=== PATIENT | female | born 1975 | race Caucasian/White ===

== ENCOUNTER 2020-08-08 10:24 | Outpatient (CLI) | payer OTHER, SELFPAY ==
--- NOTE | ~2020-08-08 | MM_ITS ---
EXAMINATION: MM screening [facility] BI w shawn HISTORY: Screening mammogram TECHNIQUE: Craniocaudal and mediolateral oblique 3-D tomosynthesis images were obtained and synthetic 2-D images were generated. CAD analysis was submitted and interpreted. COMPARISON: 08/20/2018, 11/01/2016 bilateral digital screening mammogram examinations BREAST PARENCHYMAL COMPOSITION: There are scattered areas of fibroglandular density. FINDINGS: Stable fibroglandular asymmetry, with more prominent stroma on the right. There is no evide nce of suspicious mass, calcification, or architectural distortion to suggest malignancy in either br east. There has been no suspicious interval change. IMPRESSION: 1. No mammographic evidence of malignancy. 2. Recommend routine screening mammography in one year. BI-RADS Category 2: Benign finding(s). Reviewed, dictated and finalized at location A. [employer] ADMINISTRATOR
== END 2020-08-08 10:25 | disposition home or self-care (01) ==
LOC: ANHIMG 10:28
PROVIDERS: PCP Family Medicine; Visit Provider Nurse Practitioner
DX: Z12.31 Encounter for screening mammogram for malignant neoplasm of breast (principal)
CPT/HCPCS: 77063; 77067

== ENCOUNTER 2020-12-28 17:04 | Emergency (ER) | payer OTHER, SELFPAY ==
[2020-12-28 17:25] VITALS: BP 155/92; PULSE 95; RESP 16; TEMP 36.3; O2SAT 100
[2020-12-28 17:33] VITALS: BP 152/79; PULSE 95
[2020-12-28 17:34] VITALS: BP 145/82; PULSE 100
[2020-12-28 17:36] VITALS: BP 140/93; PULSE 104
[2020-12-28 17:43] LABS: Basophils Absolute Auto 0.1 K/mm3 (0.0-0.1); Basophils Percent Auto 0.6 % (0.2-1.2); Eosinophils Absolute Auto 0.1 K/mm3 (0-0.3); Eosinophils Percent Auto 1.1 % (0-4.4); Hematocrit 40.5 % (37.0-47.0); Hemoglobin 13.6 g/dL (12.0-15.0); Immature Granulocyte Absolute 0.03 K/mm3 (0.00-0.031); Immature Granulocyte Percent A 0.3 % (0-0.5); Lymphocytes Absolute Auto 3.72 K/mm3 (0.9-3.2); Mean Corpuscular HGB Conc 33.6 g/dl (32-36); Mean Corpuscular Hemoglobin 31.1 pg (26-34); Mean Corpuscular Volume 92.5 fl (80-100); Mean Platelet Volume 9.8 fl (7.4-10.4); Monocytes Absolute Auto 0.9 K/mm3 (0.1-0.6); Monocytes Percent Auto 8.5 % (2.6-8.5); Neutrophils Absolute Auto 6.1 K/mm3 (1.3-6.7); Neutrophils Percent Auto 55.5 % (45.5-73.1); Platelet Count Result 320 k/mm3 (150-375); Red Blood Count 4.38 M/mm3 (4.2-5.4); Red Cell Distribution Width 12.3 % (11.5-14.5); White Blood Count 10.9 K/mm3 (4.5-10.0)
[2020-12-28] MEDS: LACTATED RINGERS 1,000 ML 999 ML IV CONT (18:07)
--- NOTE | 2020-12-28 19:23 | PC.NURSE ---
assumed care of patient
--- NOTE | 2020-12-28 19:36 | ED.FEMALEGU ---
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 Stated complaint: heavy vag bleeding Time Seen by Provider: 12/28/20 17:34 Source: patient Mode of arrival: ambulatory Limitations: no limitations History of Present Illness HPI Narrative: 45-year-old female Here because of heavy menstrual bleeding Patient reports that her periods have become progressively heavier/longer with more and more clots over the last 3 or 4 months She feels like she was little dizzy today because of this decided come to the ER She is on a low-dose oral contraceptive, in the placebo week right now She has taken some Midol and some Motrin for cramps She has not been seen for these complaints as an outpatient yet but did schedule with [employer] [facility] Related Data Allergies Allergy/AdvReac Type Severity Reaction Status Date / Time No Known Allergies Allergy Unverified 01/13/13 16:19 Review of Systems Review of Systems: All systems reviewed & are unremarkable except as noted in HPI and below Constitutional: Constitutional: Reports no additional constitutional complaints, Denies chills, Denies fever(s) and Denies headache(s) Eyes: Eyes: Reports no additional eye complaints and Denies change in vision ENT: Denies headache(s) and Denies sore throat Cardiovascular: Cardiovascular: Denies chest pain and Denies dyspnea Respiratory: Respiratory: Denies cough and Denies dyspnea Gastrointestinal: Gastrointestinal: Denies abdominal pain, Denies diarrhea and Denies vomiting Genitourinary: Genitourinary: Reports abnormal vaginal bleeding, Denies urinary frequency, Denies dysuria and Reports pelvic pain Musculoskeletal: Musculoskeletal: Denies deformity, Denies arthralgias, Denies joint swelling and Denies numbness Integumentary/Breasts: Skin/Breast: Denies rash and Denies wounds Neurologic: Reports dizziness, Denies headache(s), Denies focal weakness and Denies numbness Psychiatric: Psychiatric: Reports no additional psychiatric complaints Endocrine: Endocrine: Reports no additional endocrine complaints Hematologic/Lymphatic: Hematologic/Lymphatic: Reports no additional hematologic/lymphatic complaints Allergic/Immunologic: Allergic/Immunologic: Reports no additional allergic/immunologic complaints PMFSH Social History Social History Gender identity (if verbalized by the patient): Female Exam Const: General: cooperative, healthy appearing, no acute distress and alert Orientation/consciousness: patient oriented x3 (alert) HENMT: Head: normal to inspection, normocephalic and atraumatic Ears: external ears normal General nose exam: no epistaxis Eyes: Conjunctivae: conjunctivae normal EOM: EOMs intact bilaterally Neck: Neck: normal visual inspection, supple and no JVD Resp: Effort & Inspection: normal respiratory effort and not labored Auscultation: other (BS =) Cardio: Rate: regular rate Rhythm: regular rhythm Heart sounds: no murmurs GI: Inspection: non-distended GI Palp: Yes Soft to palpation and No Tenderness to palpation present (GI) : Other: Very little in the way of blood in the vault or from the cervical os No cervical motion tenderness Uterus is retroverted but not clearly enlarged No adnexal masses Skin: General skin exam: normal color and no rashes or lesions noted Neuro: General: patient oriented x3 (alert) and moves all extremities Speech: normal speech Extrem: General: normal to inspection and no pedal edema Psych: Affect: normal affect Course Course Emergency Course: Discussed with Dr. Klein, will recommend that the patient taking 100 mg of Motrin 3 times a day and start her next pack of control pills right now and then she can be seen in the office on Thursday Vital Signs Vital signs: Vital Signs Temperature 36.3 C L 12/28/20 17:25 Pulse Rate 95 12/28/20 17:25 Respiratory Rate 16 12/28/20 17:25 Blood Pressure 155/92 H 12/28/20 17:25 Pulse Oximetry 100 12/28/20 17:25
== END 2020-12-28 19:53 | disposition home or self-care (01) ==
PROVIDERS: Emergency Medicine; Emergency Provider Emergency Medicine; PCP Family Medicine
DX: N92.0 Excessive and frequent menstruation with regular cycle (principal)
CPT/HCPCS: 36415; 81025; 85025; 96360; 99284; J7120

== ENCOUNTER → 2021-01-21 10:57 | Outpatient (CLI) | payer OTHER, SELFPAY ==
--- NOTE | ~2021-01-21 | US_ITS ---
EXAMINATION: US transvaginal DATE: 01/21/2021 11:22 INDICATION: Abnormal uterine bleeding TECHNIQUE: Multiple endovaginal sonographic images of the pelvis were obtained. COMPARISON: None. FINDINGS: The uterus measures 8.3 x 5.6 x 6.3 cm. There is a 2.3 x 2.0 x 2.4 cm submucosal fibroid of the posterior uterus. The endometrial complex measures 7 mm. The right ovary measures 4.4 x 2.5 x 3. 6 cm. The left ovary measures 2.5 x 1.7 x 4.4 cm. There is normal vascular flow in the ovaries. There is no free fluid in the pelvis. IMPRESSION: 1. Submucosal fibroid measuring up to 2.4 cm. Reviewed, dictated and finalized at location B.
== END ==
PROVIDERS: PCP Family Medicine; Visit Provider Nurse Practitioner
DX: N93.8 Other specified abnormal uterine and vaginal bleeding (principal); D25.0 Submucous leiomyoma of uterus
CPT/HCPCS: 76830

== ENCOUNTER 2021-09-16 02:37 | Day surgery (SDC) | payer OTHER, SELFPAY ==
[2021-09-05 14:38] VITALS: BMI 28.3
[2021-09-16 09:15] VITALS: BP 119/68; PULSE 106; RESP 18; TEMP 36.2; O2SAT 97; BMI 28.8
--- NOTE | 2021-09-16 09:21 | P.CONGI_ITS ---
Assessment and Plan Assessment and plan (1) Colon cancer screening: Code(s): Z12.11 - Encounter for screening for malignant neoplasm of colon Status: Acute (2) Positive colorectal cancer screening using Cologuard test: Code(s): R19.5 - Other fecal abnormalities Status: Acute Assessment and Plan: Colonoscopy with possible biopsy or polypectomy or cautery or injection of substances. GI Consult Note Consult date/time: 09/16/21 09:21 HPI: Nathaniel Hernandez is a 46 year old female Referred for colon cancer screening. She perform Cologuard test recently which was positive. She has not had blood in her stools. She did have loose stools for year to but recently went on a medication and seems to have changed at. She is almost constipated lately. There is no family history of inflammatory bowel disease Review of Systems Review of Systems: All systems reviewed & are unremarkable except as noted in HPI and below [facility] Social History Social History Smoking packs per day: 1 Smoking cigarettes per day: 20.0 Years smoked: 30 Smoking pack-years: 30.00 Smoking status: Current every day smoker Tobacco type: cigarettes Alcohol intake: never Substance use: never Living arrangements: with family Gender identity (if verbalized by the patient): Female Spiritual care concerns: No Meds Home Medications and Allergies Home Medications Medication Instructions Recorded Confirmed Type dextroamphetamine-amphetamine 20 mg PO DAILY 09/05/21 09/16/21 History [Adderall XR] medroxyprogesterone 150 mg IM DIRECTED 09/05/21 09/16/21 History rosuvastatin 10 mg PO DAILY 09/05/21 09/16/21 History Allergies Allergy/AdvReac Type Severity Reaction Status Date / Time No Known Allergies Allergy Verified 09/16/21 09:06 Vital Signs Vital Signs - 24 hr 09/16/21 09:15 Temperature 36.2 C L Pulse Rate 106 H Respiratory Rate 18 Blood Pressure 119/68 Pulse Oximetry 97 Exam Const: General: alert Orientation/consciousness: patient oriented x3 Resp: Auscultation: clear to auscultation bilaterally Cardio: Rhythm: regular rhythm GI: GI Palp: Yes Soft to palpation and No Tenderness to palpation present (GI) Neuro: General: patient oriented x3
[2021-09-16] MEDS: LACTATED RINGERS 1,000 ML 150 ML IV CONT (09:22)
--- NOTE | 2021-09-16 09:35 | WPDANESEPPF ---
Anes - Initial Pre Proc Eval Procedure: Operation Date: 09/16/21 10:30 Proposed Procedures p Colonoscopy - Tom Fulton MD Date/Time: 09/16/21 09:35 Surgeon: Tom Fulton MD Pre Op Diagnosis: positive cologuard Patient Data Age: 46 Gender: F Height: 1.55 m Weight: 69.1 kg Last Vital Signs Temp 97.2 F L 09/16/21 09:15 Pulse 106 H 09/16/21 09:15 Resp 18 09/16/21 09:15 BP 119/68 09/16/21 09:15 Pulse Ox 97 09/16/21 09:15 Allergies Allergy/AdvReac Type Severity Reaction Status Date / Time No Known Allergies Allergy Verified 09/16/21 09:06 Home Medications Medication Instructions Recorded Confirmed Type dextroamphetamine-amphetamine 20 mg PO DAILY 09/05/21 09/16/21 History [Adderall XR] medroxyprogesterone 150 mg IM DIRECTED 09/05/21 09/16/21 History rosuvastatin 10 mg PO DAILY 09/05/21 09/16/21 History Patient hx anesthesia problems: none Family hx anesthesia problems: none Results Review: All pre-operative results and documents have been reviewed as part of the pre-operative evaluation. [facility] Social History Social History Smoking packs per day: 1 Smoking cigarettes per day: 20.0 Years smoked: 30 Smoking pack-years: 30.00 Smoking status: Current every day smoker Tobacco type: cigarettes Alcohol intake: never Substance use: never Living arrangements: with family Gender identity (if verbalized by the patient): Female Spiritual care concerns: No Anes - Eval Final PreProcedure Day of Procedure 09/16/21 09:35 Patient weight: normal Heart: regular rate and rhythm Lungs: clear to auscultation Airway: Mallampati scale class II Neurological: alert and oriented Last oral intake: >/= 8 hours ASA classification: II Emergent: no Anesthetic plan: proceed Anesthesia type and monitoring: general GIVS and standard monitoring Results Review: All pre-operative results and documents have been reviewed as part of the pre-operative evaluation. Informed Consent: The patient's anesthetic plan and its attendant risks and benefits were discussed with the patient/family/POA. Questions were solicited and answers provided to the satisfaction of the patient/family/POA.
[2021-09-16] MEDS: SIMETHICONE ORAL SUSPENSION 20 MG/0.3 ML 30 ML BOTTLE 0.6 ML IRRIGATION (10:07)
[2021-09-16 10:17] VITALS: BP 121/74; PULSE 79; RESP 18; O2SAT 96
[2021-09-16 10:27] VITALS: BP 128/71; PULSE 61; RESP 18; O2SAT 96
[2021-09-16 10:37] VITALS: BP 126/68; PULSE 64; RESP 18; O2SAT 97
== END 2021-09-16 10:46 | disposition home or self-care (01) ==
PROVIDERS: PCP Family Medicine; Referring Provider Obstetrics & Gynecology Gynecology; Visit Provider Internal Medicine Gastroenterology
PROC: 0DJD8ZZ Inspection of Lower Intestinal Tract, Via Natural or Artificial Opening Endoscopic (ICD-10-PCS; CPT 45378; principal; 2021-09-16 10:30)
DX: Z12.11 Encounter for screening for malignant neoplasm of colon (principal); K57.30 Diverticulosis of large intestine without perforation or abscess without bleeding; D12.0 Benign neoplasm of cecum; D12.5 Benign neoplasm of sigmoid colon; R19.5 Other fecal abnormalities; F17.210 Nicotine dependence, cigarettes, uncomplicated
CPT/HCPCS: 45385; 88305; J2704; J7120

== ENCOUNTER 2021-10-18 09:01 | Outpatient (CLI) | payer OTHER, SELFPAY ==
--- NOTE | ~2021-10-18 | MM_ITS ---
EXAMINATION: MM screening julio BI w shawn HISTORY: Screening mammogram TECHNIQUE: Craniocaudal and mediolateral oblique 3-D tomosynthesis images were obtained and synthetic 2-D images were generated. CAD analysis was submitted and interpreted. COMPARISON: August 08, 2020, August 20, 2018, November 05, 2016 bilateral screening mammogram examinations BREAST PARENCHYMAL COMPOSITION: The breasts are heterogeneously dense, which may obscure small masses . FINDINGS: Stable fibroglandular asymmetry. There is no evidence of suspicious mass, calcification, or architectural distortion to suggest malignancy in either breast. There has been no suspicious interv al change. IMPRESSION: 1. No mammographic evidence of malignancy. 2. Recommend routine screening mammography in one year. BI-RADS Category 2: Benign finding(s). Reviewed, dictated and finalized at location A.
== END 2021-10-18 09:02 | disposition home or self-care (01) ==
PROVIDERS: PCP Family Medicine; Visit Provider Obstetrics & Gynecology Gynecology
DX: Z12.31 Encounter for screening mammogram for malignant neoplasm of breast (principal)
CPT/HCPCS: 77063; 77067

== ENCOUNTER 2021-10-22 18:01 | Emergency (ER) | payer OTHER, SELFPAY ==
--- NOTE | ~2021-10-22 | CT_ITS ---
EXAMINATION: CT abdomen pelvis w con DATE: 10/22/2021 21:33 INDICATION: RLQ/LLQ pain, Hx of diverticulosis TECHNIQUE: Computed tomography (CT) of the abdomen and pelvis was performed with 100 mL Omnipaque-300 intravenous contrast. Automated exposure control and iterative reconstruction technique were employe d. The dose-length product was 385.31 mGy-cm. COMPARISON: None FINDINGS: Lower thorax: Unremarkable Liver: Normal. Biliary/Gallbladder: Gallbladder is absent. No bile duct dilation. Spleen: Normal. Pancreas: No mass or duct dilation. Adrenals:No mass. Kidneys: No mass, stone, or hydronephrosis. GI tract: No small or large bowel dilation. Segmental water density wall thickening of the distal ile um. Diverticulosis without diverticulitis. Borderline appendiceal dilation without wall thickening or significant inflammation, mild wall edema in the sigmoid, both are likely reactive to the ileal richards ges. Mesentery/Peritoneum: No ascites, mass, or free air. Retroperitoneum: No mass.. Pelvis: Pelvic organs are within normal limits. Soft Tissues: Soft tissues and body wall unremarkable. Bones: No acute osseous finding. IMPRESSION: Terminal ileitis, likely infectious unless there is a history of inflammatory bowel disease, vasculit is, arthritis, or prior radiation. Reviewed, dictated and finalized at location K. IMPRESSION: Terminal ileitis, likely infectious unless there is a history of inflammatory b owel disease, vasculitis, arthritis, or prior radiation.
--- NOTE | ~2021-10-22 | CT_ITS ---
EXAMINATION: CTA chest PE protocol DATE: 10/22/2021 23:08 INDICATION: elevated dimer, Hx of syncope TECHNIQUE: Computed tomography angiography (CTA) of the chest was performed with 100 mL Omnipaque-350 intravenous contrast timed to evaluate the pulmonary arteries. Coronal maximum intensity projection 3D-reconstructions were created by the technologist. The dose-length product (DLP) was 240.51 mGy-cm. Automated exposure control and iterative reconstruction technique were employed. COMPARISON: None. FINDINGS: Study quality: Adequate. Pulmonary arteries: No pulmonary emboli detected. Thoracic aorta: Normal. Lung parenchyma and airways: Clear. Thoracic inlet, axillae and chest wall: Unremarkable. Mediastinum: Normal. Heart and pericardium: Normal. Coronary artery calcifications: Absent. Pleura: Unremarkable. Upper abdomen: No significant finding. Bones: No acute osseous finding. IMPRESSION: No CT evidence of acute pulmonary embolus. Reviewed, dictated and finalized at location K.
[2021-10-22 18:16] VITALS: BP 125/84; PULSE 85; RESP 20; TEMP 36.7; O2SAT 98
[2021-10-22 19:06] LABS: Basophils Percent Auto 0.4 % (0.2-1.2); Eosinophils Absolute Auto 0.3 K/mm3 (0-0.3); Eosinophils Percent Auto 2.5 % (0-4.4); Hematocrit 42.3 % (37.0-47.0); Hemoglobin 14.1 g/dL (12.0-15.0); Immature Granulocyte Absolute 0.03 K/mm3 (0.00-0.031); Immature Granulocyte Percent A 0.3 % (0-0.5); Lymphocytes Absolute Auto 2.91 K/mm3 (0.9-3.2); Lymphocytes Percent Auto 29.5 % (18.3-44.2); Mean Corpuscular HGB Conc 33.3 g/dl (32-36); Mean Corpuscular Hemoglobin 31.8 pg (26-34); Mean Corpuscular Volume 95.3 fl (80-100); Mean Platelet Volume 9.6 fl (7.4-10.4); Monocytes Absolute Auto 1.1 K/mm3 (0.1-0.6); Monocytes Percent Auto 10.6 % (2.6-8.5); Neutrophils Absolute Auto 5.6 K/mm3 (1.3-6.7); Neutrophils Percent Auto 56.7 % (45.5-73.1); Platelet Count Result 260 k/mm3 (150-375); Red Blood Count 4.44 M/mm3 (4.2-5.4); Red Cell Distribution Width 12.4 % (11.5-14.5); White Blood Count 9.9 K/mm3 (4.5-10.0)
[2021-10-22 19:08] LABS: Appearance Urine Clear (Clear); Bilirubin Urine 1+ (Negative); Color Urine Yellow (Yellow); Glucose Urine UA Negative (Negative); Ketones Urine Negative (Negative); Leukocyte Esterase Ur Negative LEU/UL (Negative); Nitrate Urine Negative (Negative); Protein Urine 1+ mg/dL (Negative); Specific Grav Ur >= 1.030 (1.001-1.035); Urobilinogen Urine 0.2 mg/dL (<2.0)
[2021-10-22 19:12] LABS: Alanine Aminotransferase 15 U/L (6-35); Albumin Level 4.8 g/dL (3.5-5.1); Alkaline Phosphatase 78 U/L (38-126); Anion Gap 10 mmol/L (8-16); Aspartate Amino Transferase 20 U/L (14-36); Bilirubin,Total 0.3 mg/dL (0.2-1.3); Blood Urea Nitrogen 9 mg/dL (7-17); Calcium 9.1 mg/dL (8.4-10.2); Carbon Dioxide 21 mmol/L (22-30); Chloride 109 mmol/L (98-107); Estimated CRCL calculation 77 ml/min; Estimated Glomerular Filt Rate > 60; Glucose 97 mg/dL (65-110); Lipase 70 U/L (23-300); Potassium 4.1 mmol/L (3.4-5.0); Sodium 140 mmol/L (137-145)
[2021-10-22 19:16] LABS: Add Urine Microscopic? YES; Blood Urine Trace-Intact (Negative)
[2021-10-22 19:20] LABS: Calcium Oxalate Crystals Urine Present /hpf; Mucus Urine Heavy /lpf; Squamous Epithelial Cell Urine Many /hpf (Few)
--- NOTE | 2021-10-22 21:04 | ED.ABDPAIN ---
HPI - Abdominal Pain General Chief Complaint: Abdominal Pain <MERLIN Hernandez Last Filed: 10/23/21 03:38> Stated Complaint: abd pain <MERLIN Hernandez Last Filed: 10/23/21 03:38> Time Seen by Provider: 10/22/21 20:18 <MERLIN Hernandez Last Filed: 10/23/21 03:38> Source: patient <MERLIN Hernandez Last Filed: 10/23/21 03:38> Mode of arrival: ambulatory <MERLIN Hernandez Last Filed: 10/23/21 03:38> Limitations: no limitations <MERLIN Hernandez Last Filed: 10/23/21 03:38> History of Present Illness HPI narrative: Patient is a 46-year-old female who presents the ED with report of mid abdominal pain and diarrhea. Patient reports she developed abdominal cramping on Thursday night. She thought she needed to the bathroom. She states she felt lightheaded and clammy on her way to the bathroom and had a syncopal episode. She did not hit her head. She was able to get up on her own and went to the bathroom and had a large bowel movement. She does note she was mildly constipated prior to this episode. She reported having diffuse watery diarrhea all day Thursday but has since had more formed bowel movements. She has had persistent abdominal pain however, worse after eating, and located in her upper abdomen. She has had a previous cholecystectomy and also had a colonoscopy done [address] Fulton which showed diverticulosis and she had 2 polyps removed. Patient has not tried any pain medication or Imodium at home or current symptoms. She denies any fever, chills, nausea, vomiting, rectal bleeding, urinary symptoms, further syncopal episodes. No CP, SOB. <MERLIN Hernandez Last Filed: 10/23/21 03:38> Related Data Home Medications: Home Medications Medication Instructions Recorded Confirmed dextroamphetamine-amphetamine 20 mg PO DAILY 09/05/21 09/16/21 [Adderall XR] medroxyprogesterone 150 mg IM DIRECTED 09/05/21 09/16/21 rosuvastatin 10 mg PO DAILY 09/05/21 09/16/21 <Shayla Corrales PA-C - Last Filed: 10/23/21 03:38> Allergies/Adverse Reactions: Allergies Allergy/AdvReac Type Severity Reaction Status Date / Time No Known Allergies Allergy Verified 09/16/21 09:06 <Shayla Corrales PA-C - Last Filed: 10/23/21 03:38> Review of Systems Review of Systems: CONSTITUTIONAL: Denies fever, chills, or sweats. CARDIOVASCULAR: Denies chest pain. RESPIRATORY: Denies dyspnea. GASTROINTESTINAL: Reports mid/upper abdominal pain, diarrhea. Denies rectal bleeding, nausea, vomiting. GENITOURINARY: Denies dysuria or hematuria. MUSCULOSKELETAL: Denies back pain. NEUROLOGIC: Reports syncope. Denies headache, numbness, or weakness. <Shayla Corrales PA-C - Last Filed: 10/23/21 03:38> All systems reviewed & are unremarkable except as noted in HPI and below <Shayla Corrales PA-C - Last Filed: 10/23/21 03:38> [facility] Past Medical History Medical History: Medical History ADHD Hyperlipidemia <Shayla Corrales PA-C - Last Filed: 10/23/21 03:38> Surgical History Surgical History: Surgical History (Updated 10/23/21 @ 03:28 by Shayla Corrales PA-C) History of section Hx of cholecystectomy <Shayla Corrales PA-C - Last Filed: 10/23/21 03:38> Social History Social History: Social History Smoking packs per day: 1 Smoking cigarettes per day: 20.0 Years smoked: 30 Smoking pack-years: 30.00 Smoking status: Current every day smoker Tobacco type: cigarettes Alcohol intake: never Substance use: never Gender identity (if verbalized by the patient): Female Spiritual care concerns: No <Shayla Corrales PA-C - Last Filed: 10/23/21 03:38> Exam Narrative: GENERAL: Well appearing, well-nourished, non-toxic, in no acute distress. HEAD: Normocephalic, atraumatic. NECK: Supple. No adenopathy, no masses.
--- NOTE | 2021-10-22 21:05 | ECG_ITS ---
Measurements Intervals [place] Rate: 60 P: 38 [place]: 148 QRS: -6 QRSD: 90 T: 3 QT: 419 QTc: 420 Interpretive Statements SINUS RHYTHM BORDERLINE T WAVE ABNORMALITY- ANT/INF LEADS BORDERLINE ECG Electronically Signed On 10-23-2021 6:44:06 CDT by Deni Bernabe D.O.
[2021-10-22] MEDS: KETOROLAC 30 MG/ML VIAL (*BKC) IV PUSH (21:46)
[2021-10-22] MEDS: SODIUM CHLORIDE 0.9% IV 1,000 ML 999 ML IV CONT (21:47)
[2021-10-22 22:14] LABS: D Dimer 2.42 ug/mL (<0.48)
[2021-10-22 23:50] VITALS: BP 109/82; PULSE 79; RESP 18; O2SAT 99
== END 2021-10-22 23:50 | disposition home or self-care (01) ==
PROVIDERS: Emergency Medicine; Physician Assistant; Emergency Provider Emergency Medicine; PCP Family Medicine
DX: K50.00 Crohn's disease of small intestine without complications (principal); F90.9 Attention-deficit hyperactivity disorder, unspecified type; E78.5 Hyperlipidemia, unspecified; F17.210 Nicotine dependence, cigarettes, uncomplicated; R82.998 Other abnormal findings in urine; R94.31 Abnormal electrocardiogram [ECG] [EKG]
CPT/HCPCS: 36415; 71275; 74177; 80053; 81001; 81025; 83690; 85025; 85380; 87086; 87088; 93005; 96365; 96375; 99284; J0131; J1885; J7030; Q9967

== ENCOUNTER 2022-02-24 08:01 | Outpatient (CLI) | payer OTHER, SELFPAY ==
--- NOTE | ~2022-02-24 | XR_ITS ---
EXAMINATION: XR UGIAC w small bowel DATE: 02/24/2022 10:23 INDICATION: Abnormal findings on diagnostic imaging. Terminal ileitis. TECHNIQUE: The patient drank thick barium, gas-producing crystals, and thin barium. Fluoroscopy of th e esophagus, stomach, and small bowel was performed. Fluoroscopy exposure time was 0.8 minutes. Radio graphs of the abdomen were obtained. The total number of images was 286. COMPARISON: CT abdomen and pelvis 10/22/2021 FINDINGS: UPPER GASTROINTESTINAL SERIES: There is no mass or stricture of the esophagus. Esophageal motility is normal. There is no hiatal her veronica. The stomach shows a normal folding pattern. SMALL BOWEL SERIES: The small bowel shows a normal folding pattern. Specifically, the terminal ileum is normal. Transit t to to the colon was 1.5 hours. Surgical clips in the right upper quadrant are likely from cholecyste ctomy. IMPRESSION: 1. Normal upper gastrointestinal series. 2. Normal small bowel series. Reviewed, dictated and finalized at location A.
== END 2022-02-24 08:02 | disposition home or self-care (01) ==
PROVIDERS: Visit Provider Internal Medicine Gastroenterology
DX: R93.3 Abnormal findings on diagnostic imaging of other parts of digestive tract (principal)
CPT/HCPCS: 74246; 74248

== ENCOUNTER 2023-06-18 10:02 | Outpatient (CLI) | payer OTHER, SELFPAY ==
--- NOTE | ~2023-06-18 | MM_ITS ---
EXAMINATION: MM screening [facility] BI w shawn HISTORY: Screening mammogram TECHNIQUE: Craniocaudal and mediolateral oblique 3-D tomosynthesis images were obtained and synthetic 2-D images were generated. CAD analysis was submitted and interpreted. COMPARISON: 10/18/2021, 08/08/2020, 08/20/2018 BREAST PARENCHYMAL COMPOSITION: There are scattered areas of fibroglandular density. FINDINGS: No suspicious mass, calcification, or architectural distortion are identified in either amira ast to suggest malignancy. There has been no suspicious interval change. IMPRESSION: 1. No mammographic evidence of malignancy. 2. Recommend routine screening mammography in one year. BI-RADS Category 1: Negative Reviewed, dictated and finalized at location A. [employer]AD
== END 2023-06-18 10:03 | disposition home or self-care (01) ==
PROVIDERS: Visit Provider Advanced Practice Midwife
DX: Z12.31 Encounter for screening mammogram for malignant neoplasm of breast (principal)
CPT/HCPCS: 77063; 77067

== ENCOUNTER 2024-10-04 02:58 | Day surgery (SDC) | payer OTHER, SELFPAY ==
[2024-09-22 13:27] VITALS: BMI 31.8
--- OUTSIDE RECORDS SUMMARY | 2024-10-04 03:00 | XMS_ITS | Data Portability ---
[facility] Organization [facility] Jara Address [address] [place] [address] Care Team Providers Care Intervention Nurse Name Role Phone LULY JUSTIN Primary Care Provider [phone] Assessment Encounter Date Assessment Date Assessment LastModified by Organization Details LastModified Time 01/07/2024 01/07/2024 48 yo F with h/o ADHD, depression, tobacco dependence, cannabis user is here for medical clearance for elective surgery hbhooma Not available 01/09/2024 08:24:39 05/20/2024 05/20/2024 ADHD and depression f/u hbhooma Not available 05/20/2024 10:17:18 Plan of Treatment Reminders Order Date Submit Date Provider Last Modified By Organization Details Last Modified Time Details Appointments None record ed. Lab None record ed. Referral orthop edic surgeo n referr al - Right superi or labral tear 2023 024 [facility], [address] [place] [address], [place], [address], 4 13:42:39 Procedures None record ed. Surgeries None record ed. Imaging XR, hip, unilat eral, 2 or 3 view 2023 024 [facility] Scheduling, [place], [address], 4 16:59:35 Medication Orders tramad ol ER 100 mg tablet ,exten ded releas e 24 hr 2023 024 [facility] #[id number], [address], [place], [id number], 4 13:56:00 sertra line 25 mg tablet 2023 024 [facility] #[id number], [address], [place], [id number], 4 12:52:10 rosuva statin 10 mg tablet 2023 024 hbhooma [facility] #[id number], [address], [place], [id number], 4 16:14:25 Addera ll XR 30 mg capsul e,exte nded releas e 2023 024 [facility]-[id number] [facility] #[id number], [address], [place], [id number], 22:25:49 Patient TargetsNo targets recorded. Patient Instructions Encounter Date Encounter Id Patient Instructions Last Modified By Organization Details Last Modified Time 07/02/2023 [id number] Quitting Tobacco: Care Instructions hbhooma Not available 07/02/2023 16:14:25 I certify that I was present for case discussion in the Family Medicine preceptor room at the time of this encounter. I have reviewed the note and agree with the findings, assessment, and plan except as I have documented below. Follow up as listed. All labs/imaging/con sults to be followed by the ordering provider. Hollis Mohr, Capt, [facility], Staff Physician. [email or web address] Not available 07/08/2023 14:02:54 09/04/2023 [id number] I was present and available in the family medicine clinic to discuss the patient's care during the appointment and the case was discussed with me. I agree with the resident's assessment and plan as documented. HL hlucasfoster Not available 09/07/2023 13:23:52 01/07/2024 [id number] I was present to discuss the patient case with the resident in the Teach room. Agree with documentation. Lynn Abdullahi MD Family Medicine Faculty [email or web address] Not available 01/11/2024 17:28:55 05/20/2024 [id number] A healthy lifestyle: care instructions hbhooma Not available 05/23/2024 16:36:56 I was present and available in the family medicine clinic to discuss the patient's care during the appointment and the case was discussed with me. I agree with the resident's assessment and plan as documented. HL hlucasfoster Not available 05/30/2024 18:12:29 07/22/2024 [id number] A healthy lifestyle: care instructions hbhooma Not available 07/24/2024 16:34:31 I was present and available in the family medicine clinic to discuss the patient's care during the appointment and the case was discussed with me. I agree with the resident's assessment and plan as documented. [email or web address] Not available 07/25/2024 15:52:02 Reason for Referral Orthopedic Surgeon Referral for Pain in right hip joint Right superior labral tear Referring Physician: Luly Justin, Business Developer, Encounter Date: 09/04/2023 Results Created Date Observation Date Name Description Value Unit Range Abnormal Flag Note LastModifiedBy Organization Detail LastModifiedTime 01/19/20 24 01/19/2024 CBC WITH DIFF WBC 10.84 x10'3 /uL 4.5-[address] [facility] (Lab) [place], [address], 01/19/2024 10:31:37 01/19/20 24 01/19/2024 CBC WITH DIFF RBC 4.26 x10'6 /uL 4.20-[address] [facility] (Lab) [place], [address], 01/19/2024 10:31:37 01/19/20 24 01/19/2024 CBC WITH DIFF hemoglobin 13.3 g/dL 12.0-[address] [facility] (Lab) [address] [facility], [place], [address], 01/19/2024 10:31:37 01/19/20 24 01/19/2024 CBC WITH DIFF hematocrit 39.5 % 38.0-[address] [facility] (Lab) [address] [facility], [place], [address], 01/19/2024 10:31:37 01/19/20 24 01/19/2024 CBC WITH DIFF MCV 92.7 fL 81.0-[address] [facility] (Lab) [address] [facility], [place], [address], 01/19/2024 10:31:37 01/19/20 24 01/19/2024 CBC WITH DIFF MCH 31.2 pg 27.0-3 [address] [facility] (Lab) [address] [facility], [place], [address], 01/19/2024 10:31:37 01/19/20 24 01/19/2024 CBC WITH DIFF MCHC 33.7 g/dL 32.0-[address] [facility] (Lab) [address] [facility], [place], [address], 01/19/2024 10:31:37 01/19/20 24 01/19/2024 CBC WITH DIFF RDW 12.6 % 11.5-[address] [facility] (Lab) [address], [place], [address], 01/19/2024 10:31:37 01/19/20 24 01/19/2024 CBC WITH DIFF platelet count 259 x10'3 /uL 130-[address] [facility] (Lab) [address], [place], [address], 01/19/2024 10:31:37 01/19/20 24 01/19/2024 CBC WITH DIFF MPV 9.9 fL 9.3-[address] [facility] (Lab) [address], [place], [address], 01/19/2024 10:31:37 01/19/20 24 01/19/2024 CBC WITH DIFF diff type AUTOMA ZOEY DIFFER ENTIAL Not Available [facility] (Lab) [address], [place], [address], 01/19/2024 10:31:37 01/19/20 24 01/19/2024 CBC WITH DIFF neutrophils 59.6 % Not Available [facility] (Lab) [address], [place], [address], 01/19/2024 10:31:37 01/19/20 24 01/19/2024 CBC WITH DIFF lymphocytes 29.3 % Not Available [facility] (Lab) [address], [place], [address], 01/19/2024 10:31:37 01/19/20 24 01/19/2024 CBC WITH DIFF monocytes 8.5 % Not Available [facility] (Lab) [address], [place], [address], 01/19/2024 10:31:37 01/19/20 24 01/19/2024 CBC WITH DIFF eosinophils 1.7 % Not Available [facility] (Lab) [address], [place], [address], 01/19/2024 10:31:37 01/19/20 24 01/19/2024 CBC WITH DIFF basophils 0.6 % Not Available [facility] (Lab) [place], [address], 01/19/2024 10:31:37 01/19/20 24 01/19/2024 CBC WITH DIFF immature granulocytes 0.3 % Not Available [facility] (Lab) [place], [address], 01/19/2024 10:31:37 01/19/20 24 01/19/2024 CBC WITH DIFF abs. neutrophils 6.47 x10'3 /uL 1.80-[address] [facility] (Lab) [place], [address], 01/19/2024 10:31:37 01/19/20 24 01/19/2024 CBC WITH DIFF abs. lymphocytes 3.18 x10'3 /uL 1.00-[address] [facility] (Lab) [place], [address], 01/19/2024 10:31:37 01/19/20 24 01/19/2024 CBC WITH DIFF abs. monocytes 0.92 x10'3 /uL 0.24-0 [address] [facility] (Lab) [place], [address], 01/19/2024 10:31:37 01/19/20 24 01/19/2024 CBC WITH DIFF abs. eosinophils 0.18 x10'3 /uL 0.04-[address] [facility] (Lab) [place], [address], 01/19/2024 10:31:37 01/19/20 24 01/19/2024 CBC WITH DIFF abs. basophils 0.06 x10'3 /uL 0.01-[address] [facility] (Lab) [place], [address], 01/19/2024 10:31:37 01/19/20 24 01/19/2024 CBC WITH DIFF abs. immature grans 0.03 x10'3 /uL 0.00-[address] [facility] (Lab) [place], [address], 01/19/2024 10:31:37 01/19/20 24 01/19/2024 BASIC METAB OLIC PANEL glucose 88 mg/dL 70-99 Not Available [facility] (Lab) [address], [place], [address], 01/19/2024 10:48:12 01/19/20 24 01/19/2024 BASIC METAB OLIC PANEL BUN 7 mg/dL 7-18 Not Available [facility] (Lab) [place], [address], 01/19/2024 10:48:12 01/19/20 24 01/19/2024 BASIC METAB OLIC PANEL creatinine 0.75 mg/dL 0.55-[address] [facility] (Lab) [place], [address], 01/19/2024 10:48:12 01/19/20 24 01/19/2024 BASIC METAB OLIC PANEL sodium 138 mmol/ L 136-[address] [facility] (Lab) [place], [address], 01/19/2024 10:48:12 01/19/20 24 01/19/2024 BASIC METAB OLIC PANEL potassium 3.0 mmol/ L 3.5-5. 1 critical low Criti abbey Resul t(s) Pryor d at: 09:47 :21 on 01/18 by: DEVON GAN to and read back by: BECKY DALE Not Available [facility] (Lab) [address], [place], [address], 01/19/2024 10:48:12 01/19/20 24 01/19/2024 BASIC METAB OLIC PANEL chloride 111 mmol/ L 100-[address] [facility] (Lab) [address], [place], [address], 01/19/2024 10:48:12 01/19/20 24 01/19/2024 BASIC METAB OLIC PANEL total CO2 20.9 mmol/ L 21-[address] [facility] (Lab) [place], [address], 01/19/2024 10:48:12 01/19/20 24 01/19/2024 BASIC METAB OLIC PANEL calcium 9.3 mg/dL 8.5-[address] [facility] (Lab) [address], [place], [address], 01/19/2024 10:48:12 01/19/20 24 01/19/2024 BASIC METAB OLIC PANEL anion gap 6.1 mmol/ L 5-[address] [facility] (Lab) [place], [address], 01/19/2024 10:48:12 01/19/20 24 01/19/2024 BASIC METAB OLIC PANEL BUN creatinine ratio 9.4 6-26 Not Available [facility] (Lab) [address], [place], [address], 01/19/2024 10:48:12 01/19/20 24 01/19/2024 BASIC METAB OLIC PANEL est GFR >90 mL/mi n/1.7 3_M2 >90 NOTE: eGFR is not calcu lated for patie nts <18 years of age. This is an estim ated GFR calcu latio n using the new CKD EPI creat inine equat ion witho ut race and so does not requi re a corre ction facto r for race. This estim ated GFR shoul d not be used for calcu latin g drug doses . Not Available [facility] (Lab) [place], [address], 01/19/2024 10:48:12 01/19/2001/19/2024 PROTI ME protime 10.2 sec 10.2-[address] [facility] (Lab) [place], [address], 01/19/2024 10:54:44 01/19/20 24 01/19/2024 PROTI ME INR 0.9 Recom kirstin d INR Thera peuti c Goals : 2.0-3 .0 Routi ne Thera py 2.5-3 .5 Mecha nical Prost hetic Valve s (High Risk) Not Available [facility] (Lab) [place], [address], 01/19/2024 10:54:44 01/19/2001/19/2024 PTT PTT 28.2 sec 25.1-[address] [facility] (Lab) [place], [address], 01/19/2024 10:54:46 01/19/20 24 01/19/2024 UA REFLE X TO MICRO specimen type URINE CLEAN CATCH Not Available [facility] (Lab) [place], [address], 01/19/2024 10:58:37 01/19/20 24 01/19/2024 UA REFLE X TO MICRO color YELLOW Not Available [facility] (Lab) [place], [address], 01/19/2024 10:58:37 01/19/20 24 01/19/2024 UA REFLE X TO MICRO clarity CLEAR Not Available [facility] (Lab) [place], [address], 01/19/2024 10:58:37 01/19/20 24 01/19/2024 UA REFLE X TO MICRO specific gravity 1.015 1.001- 1.[address] [facility] (Lab) [place], [address], 01/19/2024 10:58:37 01/19/20 24 01/19/2024 UA REFLE X TO MICRO pH, urine 6.0 5.0-9. [address] [facility] (Lab) [place], [address], 01/19/2024 10:58:37 01/19/20 24 01/19/2024 UA REFLE X TO MICRO leukocytes NEGATI VE neg Not Available [facility] (Lab) [place], [address], 01/19/2024 10:58:37 01/19/20 24 01/19/2024 UA REFLE X TO MICRO nitrite NEGATI VE neg Not Available [facility] (Lab) [place], [address], 01/19/2024 10:58:37 01/19/20 24 01/19/2024 UA REFLE X TO MICRO protein NEGATI VE mg/dL <30 Not Available [facility] (Lab) [place], [address], 01/19/2024 10:58:37 01/19/20 24 01/19/2024 UA REFLE X TO MICRO glucose NORMAL mg/dL norm Not Available [facility] (Lab) [place], [address], 01/19/2024 10:58:37 01/19/20 24 01/19/2024 UA REFLE X TO MICRO ketone NEGATI VE mg/dL neg Not Available [facility] (Lab) [place], [address], 01/19/2024 10:58:37 01/19/20 24 01/19/2024 UA REFLE X TO MICRO urobilinogen NORMAL mg/dL norm Not Available [facility] (Lab) [place], [address], 01/19/2024 10:58:37 01/19/20 24 01/19/2024 UA REFLE X TO MICRO bilirubin NEGATI VE mg/dL neg Not Available [facility] (Lab) [place], [address], 01/19/2024 10:58:37 01/19/20 24 01/19/2024 UA REFLE X TO MICRO blood NEGATI VE neg Not Available [facility] (Lab) [place], [address], 01/19/2024 10:58:37 01/19/20 24 01/19/2024 TYPE AND SCREE N ABO/Rh(D) TYPE AND SCREE N 01/18 10:12 , ABO/R H(D): A POSIT GARETH Not Available [facility] (Lab) [address] [facility], [place], [address], 01/19/2024 11:12:25 01/19/20 24 01/19/2024 TYPE AND SCREE N antibody screen 2023 10:12, ANTIBO DY SCREEN : NEGATI VE Not Available [facility] [address] [facility], [place], [address], 01/19/2024 11:12:25 01/19/20 24 01/19/2024 TYPE AND SCREE N xm expiration 2023 10:12, XM EXPIRA TION: 2023,[address] [facility] (Lab) [address] [facility], [place], [address], 01/19/2024 11:12:25 01/19/20 24 01/19/2024 MRSA SCREE N CULTU RE header [facility] [place] [address] Patie nt:TADEO GALLAGHER 0[address] [facility] Rec#: [id number] [facility] MD: ISMA LYON : [birth year] Sex: F Locat ion: SEOOD S Test: MRSA SCREE N CULTU RE Colle ct Date: 01-18 09:16 Acces corbin #: [id number] Not Available [facility]) [address] [facility], [place], [address], 01/20/2024 07:45:35 01/19/20 24 01/19/2024 MRSA SCREE N CULTU RE MRSA screen culture SPECI MEN DESCR IPTIO N - NASAL SPECI AL REQUE STS - NO SPECI AL REQUE ST CULTU RE - NO METHI CILLI N RESIS TANT STAPH YLOCO CCUS AUREU S ISOLA ZOEY REPOR T STATU S - FINAL 01/[address] [facility] (Lab) [address], [place], [address], 01/20/2024 07:45:35 01/19/20 24 01/19/2024 URINE CULTU RE header [facility] [place] [address] Patie nt:TADEO GALLAGHER 0343 Med Rec#: [id number] Order ing MD: ISMA LYON : [birth year] Sex: F Locat ion: SEOOD S Test: URINE CULTU RE Colle ct Date: 01-18 09:19 Acces corbin #: [id number] [facility] (Lab) [address], [place], [address], 01/21/2024 11:13:11 01/19/20 24 01/19/2024 URINE CULTU RE urine culture SPECI MEN DESCR IPTIO N - URINE CLEAN CATCH SPECI AL REQUE STS - NO SPECI AL REQUE ST CULTU RE - 10,00 0-49, 000 COL/M L ESCHE LIBERTY A COLI CULTU RE - 50,00 0-100 ,000 COL/M L ENTER OCOCC US SPECI ES REPOR T STATU S - FINAL 01/20 ORGAN ISM - 10,00 0-49, 000 COL/M L ESCHE [place] A COLI METHO D - VANESSA AMPIC ILLIN - 4 SUSCE PTIBL E AMP/S ULBAC HALL - <=2 SUSCE PTIBL E CEFTR IAXON E - <=1 SUSCE PTIBL E CEFTA ZIDIM E - <=1 SUSCE PTIBL E CEFAZ YURIDIA - <=4 SUSCE PTIBL E ESBL - NEG NITRO FURAN TOIN - <=16 SUSCE PTIBL E GENTA MICIN - <=1 SUSCE PTIBL E LEVOF LOXAC IN - <=0.1 2 SUSCE PTIBL E PIPRA CIL/T AZO - <=4 SUSCE PTIBL E TRIME TH-CHERY LFAME THOXA ZOLE - <=20 SUSCE PTIBL E ORGAN ISM - 50,00 0-100 ,000 COL/M L ENTER OCOCC US SPECI ES METHO D - VANESSA AMPIC ILLIN - <=2 SUSCE PTIBL E NITRO FURAN TOIN - <=16 SUSCE PTIBL E GENTA MICIN SYNER GY - SUSCE PTIBL E PENIC ILLIN G - 2 SUSCE PTIB[address] E Not Available [facility] (Lab) [address], [place], [address], 01/21/2024 11:13:11 01/19/20 24 01/23/2024 NICOT INE AND COTIN INE,U R nicotine, urine 317 Unit: ng/mL Not Available [facility] (Lab) [place], [address], 01/23/2024 01:13:39 01/19/20 24 01/23/2024 NICOT INE AND COTIN INE,U R cotinine, urine 1538 Unit: ng/mL Refer ence Range : Nicot ine, Urine Smoke rs: 200-7 00 ng/mL Nonsm okers : < or = 17 ng/mL Cotin ine, Urine Smoke rs: 300-1 300 ng/mL Nonsm okers : < or = 20 ng/mL Indiv idual s expos ed to anthony beaulieu d or passi ve tobac co smoke may demon strat e michaela ntrat ions of nicot ine and cotin ine great er than those indic ated for non-s moker s. This test was devel oped and its tucker tical perfo rmanc e lashon cteri stics have been deter mined by Donal Poweri blank coffman, NIKHIL. It has not been clear ed or appro jasmin by the U.S. Food and Drug Admin istra tion. This assay has been valid ated pursu ant to the CLIA regul ation s and is used for clini abbey purpo ses. Test Perfo rmed by Luli Mansfield, Donal Diagn prachi s [facility], [address] [facility] , [facility], [place] Wm Jones M.D., Ph.D. , [facility] atori es [phone], CLIA [id number] [facility] (Lab) [place], [address], 01/23/2024 01:13:39 01/22/20 24 01/22/2024 BASIC METAB OLIC PANEL glucose 102 mg/dL 70-99 high Not Available [facility] (Lab) [place], [address], 01/22/2024 13:04:22 01/22/20 24 01/22/2024 BASIC METAB OLIC PANEL BUN 11 mg/dL 7-18 Not Available [facility] (Lab) [place], [address], 01/22/2024 13:04:22 01/22/20 24 01/22/2024 BASIC METAB OLIC PANEL creatinine 0.71 mg/dL 0.55-[address] [facility] (Lab) [place], [address], 01/22/2024 13:04:22 01/22/20 24 01/22/2024 BASIC METAB OLIC PANEL sodium 138 mmol/ L 136-[address] [facility] (Lab) [place], [address], 01/22/2024 13:04:22 01/22/20 24 01/22/2024 BASIC METAB OLIC PANEL potassium 4.4 mmol/ L 3.5-5. [address] [facility], [address], 01/22/2024 13:04:22 01/22/20 24 01/22/2024 BASIC METAB OLIC PANEL chloride 110 mmol/ L 100-[address] [facility] (Lab) [place], [address], 01/22/2024 13:04:22 01/22/20 24 01/22/2024 BASIC METAB OLIC PANEL total CO2 23.1 mmol/ L 21-[address] [facility] (Lab) [place], [address], 01/22/2024 13:04:22 01/22/20 24 01/22/2024 BASIC METAB OLIC PANEL calcium 9.3 mg/dL 8.5-[address] [facility] (Lab) [place], [address], 01/22/2024 13:04:22 01/22/20 24 01/22/2024 BASIC METAB OLIC PANEL anion gap 4.9 mmol/ L 5-[address] [facility] (Lab) [place], [address], 01/22/2024 13:04:22 01/22/20 24 01/22/2024 BASIC METAB OLIC PANEL BUN creatinine ratio 15.5 6-26 Not Available [facility] (Lab) [place], [address], 01/22/2024 13:04:22 01/22/20 24 01/22/2024 BASIC METAB OLIC PANEL est GFR >90 mL/mi n/1.7 3_M2 >90 NOTE: eGFR is not calcu lated for patie nts <18 years of age. This is an estim ated GFR calcu latio n using the new CKD EPI creat inine equat ion witho ut race and so does not requi re a corre ction facto r for race. This estim ated GFR shoul d not be used for calcu latin g drug doses . Not Available [facility] (Lab) [address], [place], [address], 01/22/2024 13:04:22 07/02/19 24 XR, hip, unila teral , 2 or 3 [facility] [place] [address] Examin ation: Right hip 2 views Access ion: [id number] Exam date/t to: 3:39 PM Reason For Exam: Pain Compar jose: No prior exam Techni que: AP and frog views of the right hip were obtain ed. Findin gs: No eviden ce of fractu re or focal bone abnorm ality right acetab ulum or proxim al femur. Right hip joint space appear s unrema rkable . No eviden ce of abnorm al soft tissue densit ies. =====I MPRESS ION:== === No signif icant radiog raphic abnorm ality. ====== ====== ====== === Ordere d By: LOIDA Paez onical ly Signed By: Chito Barron MD on 4:41 PM Interp reted By: Chito Barron MD, 4:40 PM hbhooma [facility] Scheduling [facility], [place], [address], 07/08/2023 20:22:19 08/31/19 24 MRI, hip, w/ contr ast [facility] [place] [address] Date: 7:33 AM Exam: MRI HIP RT WO CON Compar jose: Right hip radiog lisbeth dated . Techni que: Multip lanar unenha nced sequen cing was obtain ed with an MRI hip protoc ol. Histor y: Right hip pain that radiat es down the right leg for 4 months . Pain starte d after carryi ng boxes up and down stairs Novemb er 2022. Findin gs: The osseou s struct ures of the pelvis and hips are intact . There are scant hip joint effusi ons. There is no arthri tis in the hips. There is no signif icant trocha nteric bursit is. There is a small focal tear in the superi or right hip labrum . The anteri or and credit counselor ior right hip labrum appear normal . The right hip ligame ntum teres and transv erse acetab ular ligame nt are intact . There is a 2 cm submuc osal fibroi d in the lower uterin e segmen t. There is a couple of small fibroi ds in the anteri or left lower uterin e segmen t. Partia lly visual ized is degene rative disc diseas e at L4-5. Impres corbin: 1. Scant joint effusi ons. 2. Small focal tear in the right hip superi or labrum . 3. Partia lly visual ized is degene rative disc diseas e at L4-5. Ordere d By: LOIDA JUSTIN Electr onical ly Signed By: Felton anguiano Jr, MD on 3:21 PM Interp reted By: Felton anguiano Jr, MD, 3:17 PM [facility], [place], [address], 09/20/2023 22:52:16 11/15/19 24 MRI lumb spine wo con [facility] [place] [address] EXAMIN ATION: MRI lumbar spine withou t contra st ACCESS ION: [id number] EXAM DATE/T TO: 12:11 PM REASON FOR EXAM: radicu lar leg pain See Commen ts to the Radiol ogist COMPAR JOSE: No previo us. TECHNI QUE: Mutipl enma, multis equenc e MRI of the lumbar spine was obtain ed withou t the use of an IV contra st agent. FINDIN GS: The height of the lumbar verteb ra are well-m aintai pepe. There pars appear intact . In the lower thorac ic segmen ts no signif icant disc abnorm alitie s. L1-L2: No signif icant disc lesion s or stenos is. L2-3: Well-m aintai pepe inters pace with no signif icant disc abnorm alitie s or stenos is. Early mild facet diseas e. L3-4: Mild hypert rophy of the facets and ligame nts. There is no signif icant disc abnorm ality. There is no stenos is. L4-5: Degene rative change s of modera te degree with degene rative endpla te edema. At least modera te facet diseas e and thicke mark of the ligame nts. At this level large disc protru corbin with extrus ion as seen at the center deform ing the dural sac associ ated with modera te to severe narrow ing of the centra l canal and the latera l recess es worse on the right. There is mild-t o-mode rate narrow ing of the neural forame n on both sides. L5/S1: Hypert rophy of the facets of mild-t o-mode rate degree . No signif icant disc abnorm alitie s or stenos is. Within the dural sac no abnorm al signal . Distal spinal cord unrema rkable . The visual ized parasp inal soft tissue s show no acute findin gs. =====I MPRESS ION:== === 1. L4-L5: Large disc hernia tion with disc extrus ion into the centra l canal and right to the midlin e narrow ing the latera l recess es and the centra l canal. Mild to modera te stenos is of both sides. 2. At other levels no signif icant disc abnorm alitie s. Mild facet diseas e more pronou nced in the lower lumbar levels includ ing L4-5 and L5/S1. ====== ====== ====== === Ordere d By: GABINO ROMAN HY Electr onical ly Signed By: Evangelista Gibbs MD on 11/15/19 1:34 PM Interp reted By: Evangelista Gibbs MD, 11/15/19 1:32 PM [facility] [address] [facility], [place], [address], 11/23/2023 15:41:04 01/26/20 24 surg xr lumb spine [facility] [place] [address] FLUORO SCOPY CONTRO L ONLY Impres corbin: No radiol ogic interp retati on will be issued . The report and docume ntatio n of this exam will reside in the patien t's perman ent medica l record and in the attend ing physic deny's proced ure note. Ordere d By: AMA LYON Electr onical ly Signed By: Jesse smith MD on 2:44 PM Interp reted By: Jesse smith MD, 2:44 PM [facility] [address] [facility], [place], [address], 01/26/2024 21:15:20 Result Notes None recorded. Problems Name Problem SNOMED Code Status Onset Date Resolution Date Notes Provider Name and Address Organization Details Recorded Time Attention deficit hyperactivity disorder 639506996 Active 2023 Luly Justin MD Attn: Lisa reyes,[address] [facility], [place], [address], [facility] 4 13:43:00 Panic attack 542078945 Active 2023 Luly Justin MD Attn: Lisa reyes,[address] [facility], [place], [address], [facility] 4 13:43:10 Hyperlipidemia 41321168 Active 2023 Luly Justin MD Attn: Lisa reyes,[address], [place], [address], [facility] 4 13:43:20 Depressive disorder 58828270 Active 2023 Luly Justin MD Attn: Lisa reyes,[address], [place], [address], [facility] 4 13:43:28 Problem Notes None recorded. Procedures Surgical History None recorded. Imaging Results Imaging Date Name Status LastModified by Organiz ation Details LastModified Time 07/02/2023 XR, hip, unilateral, 2 or 3 view completed [facility] [place], [address], 07/08/2023 20:22:19 08/31/2023 MRI, hip, w/ contrast [place], [address], 09/20/2023 22:52:16 11/15/2023 MRI lumb spine wo con completed [address], [place], [address], 11/23/2023 15:41:04 01/26/2024 surg xr lumb spine 1V completed [address], [place], [address], 01/26/2024 21:15:20 Procedure Notes None recorded. Medical Equipment None Reported. Allergies No known drug allergies Medications Name Sig Start Date Stop Date Status Note LastModified by Organization Details LastModified Time cyclobenzap rine 10 mg tablet TAKE 1 TABLET BY MOUTH EVERY 8 HOURS 05/20 completed Not Available Not Available Not Available hydrocodone 5 mg-acetamin ophen 325 mg tablet TAKE 1 TO 2 TABLETS BY MOUTH EVERY 4 HOURS NEEDED FOR CHRONIC PAIN 05/20 completed Not Available Not Available Not Available meloxicam 15 mg tablet 05/20 completed Not Available Not Available Not Available metronidazo le 0.75 % (37.5 mg/5 gram) vaginal gel 1 APPLICATO R VAGINALLY FOR 3 DAYS AT AT BEDTIME 08/04 completed Not Available Not Available Not Available prednisone 20 mg tablet TAKE 2 TABLETS BY MOUTH EVERY DAY FOR 5 DAYS 07/01 completed Not Available Not Available Not Available meclizine 12.5 mg tablet TAKE 1 TABLET EVERY 6 HOURS NEEDED FOR ANXIETY. FOR 5 DAYS TAKE 1 TABLET EVERY 6-12 HOURS NEEDED 05/20 completed Not Available Not Available Not Available metronidazo le 500 mg tablet TAKE 1 TABLET BY MOUTH EVERY 8 HOURS FOR 7 DAYS 07/01 completed Not Available Not Available Not Available tramadol 50 mg tablet TAKE 1 TABLET BY MOUTH EVERY DAY NEEDED 05/20 completed Not Available Not Available Not Available meloxicam 7.5 mg tablet 05/20 completed Not Available Not Available Not Available alprazolam 0.5 mg tablet TAKE 1 TABLET BY MOUTH EVERY DAY NEEDED 07/02 completed Not Available Not Available Not Available dextroamphe tamine-amph etamine ER 20 mg 24hr capsule,ext end release 06/04 completed Not Available Not Available Not Available polymyxin B sulfate 10,000 unit-trimet hoprim 1 mg/mL eye drops 08/04 completed Not Available Not Available Not Available orphenadrin e citrate ER 100 mg tablet,exte nded release 05/20 completed Not Available Not Available Not Available sertraline 25 mg tablet TAKE 1 TABLET BY MOUTH EVERY DAY 04/21 completed Not Available Not Available Not Available zolpidem 5 mg tablet 06/04 completed Not Available Not Available Not Available levofloxaci n 750 mg tablet TAKE 1 TABLET BY MOUTH DAILY FOR 7 DAYS 07/01 completed Not Available Not Available Not Available methylpredn isolone 4 mg tablets in a dose pack 05/20 completed Not Available Not Available Not Available dextroamphe tamine-amph etamine ER 30 mg 24hr capsule,ext end release TAKE 1 CAPSULE BY MOUTH EVERY DAY active Not Available Not Available No t Available fluticasone propionate 50 mcg/actuati on nasal spray,suspe nsion active Not Available Not Available Not Available sertraline 50 mg tablet TAKE 1 TABLET BY MOUTH EVERY DAY 04/21 completed Not Available Not Available Not Available medroxyprog esterone 150 mg/mL intramuscul ar suspension USE 1 VIAL EVERY 12 WEEKS active Not Available Not Available No t Available naproxen 500 mg tablet TAKE 1 TABLET BY MOUTH TWICE DAILY WITH FOOD 05/20 completed Not Available Not Available Not Available amoxicillin 875 mg-potassiu m clavulanate 125 mg tablet 05/20 completed Not Available Not Available Not Available medroxyprog esterone 150 mg/mL intramuscul ar syringe INJECT 1 PRE FILLED SYRINGE IN THE MUSCLE EVERY 12 WEEKS 07/05 completed Not Available Not Available Not Available rosuvastati n 10 mg tablet TAKE 1 TABLET BY MOUTH EVERY DAY active Not Available Not Available No t Available nitrofurant oin monohydrate /macrocryst als 100 mg capsule 07/01 completed Not Available Not Available Not Available tramadol ER 100 mg tablet,exte nded release 24 hr Take 1 tablet every day by oral route with meal(s) for 7 days. 09/06 completed Not Available Not Available Not Available melatonin 5 mg tablet Take 1 tablet by oral route. 2022 active Not Available Not Available Not Avai lable potassium chloride ER 20 mEq tablet,exte nded release TAKE 2 TABLETS BY MOUTH EVERY DAY FOR 3 DAYS 05/20 completed Not Available Not Available Not Available naloxone 4 mg/actuatio n nasal spray active Not Available Not Available Not Available BinaxNOW COVID-19 Ag Self Test kit TEST DIRECTED TODAY 05/20 completed Not Available Not Available Not Available Vitals Date Recorded Body height Body mass index (BMI) Body weight Oxygen saturation Oxygen saturation in Arterial blood by Pulse oximetry Heart rate Body temperature Systolic blood pressure Diastolic blood pressure Provider Name and Address Organization Details Last Updated DateTime 4 154.94 cm 32.1 kg/m2 87200.7 g 96 % 96 % 91 /min 98.3 [degF] 131 mm[Hg] 78 mm[Hg] Keri Alvarez [place] [facility] 4 15:26:46 Date Recorded Body height Body mass index (BMI) Body weight Oxygen saturation Oxygen saturation in Arterial blood by Pulse oximetry Heart rate Body temperature Systolic blood pressure Diastolic blood pressure Provider Name and Address Organization Details Last Updated DateTime 4 154.94 cm 32.9 kg/m2 73632.1 2 g 96 % 96 % 79 /min 98.1 [degF] 135 mm[Hg] 82 mm[Hg] Bing Jean Baptiste MA [facility] 4 09:55:13 Date Recorded Body height Body mass index (BMI) Body weight Oxygen saturation Oxygen saturation in Arterial blood by Pulse oximetry Heart rate Body temperature Systolic blood pressure Diastolic blood pressure Provider Name and Address Organization Details Last Updated DateTime 4 154.94 cm 31.3 kg/m2 31498.5 4 g 97 % 97 % 84 /min 98.8 [degF] 130 mm[Hg] 74 mm[Hg] Rossy Rao MA [facility] 4 09:41:00 Date Recorded Body height Body mass index (BMI) Body weight Heart rate Systolic blood pressure Diastolic blood pressure Provider Name and Address Organization Details Last Updated DateTime 4 154.94 cm 31.3 kg/m2 35447.8 9 g 90 /min 147 mm[Hg] 81 mm[Hg] Bing Jean Baptiste MA [facility] 4 17:17:44 Date Recorded Systolic blood pressure Diastolic blood pressure Provider Name and Address Organization Details Last Updated DateTime 05/20/2024 153 mm[Hg] 84 mm[Hg] Luly Justin MD Attn: Accounting,[address] [place], [address], [facility] 05/20/2024 17:41:55 Date Recorded Body height Body mass index (BMI) Body weight Body temperature Oxygen saturation Oxygen saturation in Arterial blood by Pulse oximetry Heart rate Systolic blood pressure Diastolic blood pressure Provider Name and Address Organization Details Last Updated DateTime 5 154.94 cm 30.8 kg/m2 82629.5 6 g 98.9 [degF] 99 % 99 % 81 /min 123 mm[Hg] 78 mm[Hg] Jose Miguel Martinez MA [facility] 5 12:11:04 Social History Question Answer Notes LastModified by Organizat ion Details LastModified Time Tobacco Smoking Status Current Every Day Smoker Kate Dale MA null, [place] - [facility] 06/04/2022 09:54:46 What Is Your Level Of Alcohol Consumption? None Information not available 09/18/2022 What Was The Date Of Your Most Recent Tobacco Screening? 07/22/2024 [email or web address] Information not available 07/22/2024 How Much Tobacco Do You Smoke? 1 PPD [email or web address] Information not available 01/07/2024 Do You Use Any Illicit Or Recreational Drugs? No Information not available 09/18/2022 Has Tobacco Cessation Counseling Been Provided? Yes Information not available 07/02/2023 On What Date Was Tobacco Cessation Counseling Provided? 07/02/2023 Information not available 07/02/2023 How Many Years Have You Smoked Tobacco? 30 Information not available 09/18/2022 Do You Or Have You Ever Used Any Other Forms Of Tobacco Or Nicotine? No Information not available 09/18/2022 Sex: Unknown Functional Status None recorded. Mental Status None recorded. Family History Nothing Reported. Medical History No medical history recorded. Gynecological HistoryNo gynecological history recorded. Obstetrics History GPAL:G 0 P 0 0 0 0 Immunizations Vaccine Type Date Status Note Provider Nam e and Address Organization Details Recorded Time SARS-COV-2 (COVID-19) vaccine, UNSPECIFIED 1 completed Not Available [facility] 05/28/2023 00:46:55 SARS-COV-2 (COVID-19) vaccine, UNSPECIFIED 3 completed Luly Justin MD Attn: Accounting,[address] [place], [address], [place] [facility] 07/02/2023 15:44:29 Tdap 3 completed Patti Piper RN [facility], [place] - [facility] 09/30/2022 11:12:01 Influenza, split virus, quadrivalent, PF 3 completed STAN VALDIVIA MD Attn: Accounting[address] [place], [address], [place] [facility] 04/14/2023 14:47:41 Past Encounters Encounter ID Performer Location Encounter Start Date Encounter Closed Date Diagnosis/Indication Diagnosis SNOMED-CT Code Diagnosis ICD10 Code Diagnosis Note [id number] MALIK Cummings [address] [address] 06/04/2022 09:42:28 06/05/2022 15:14:27 Attention deficit hyperactivity disorder 978447663 F90.9 - Today GAD7 is 10 and PHQ-9 is 6-Continue to take Adderall 30 mg and patient endorsed her symptoms are under controlled Panic attack 257685348 F 41.0 - She has 1 every couple of months and not that often- As per patient she tried different SSRIs and didn't tolerate the side effects. She rarely uses Alprazolam and reported she used 30 pills in 2 years- Advised to sign release record form to get her records Chronic insomnia 6393342 04 F51.04 - Sometimes have problems with Insomnia. Now pretty much controlled - Consider to prescribe Melatonin if patient desires Hyperlipidemia 83462439 E78.5 - Continue to take Rosuvastat in 10 mg [id number] [facility] [address] [address] 08/07/2022 12:04:50 2022 09:15:42 Panic attack 322048906 F41.0 - controlled ,- Refilled Alprazolam Pain of right wrist 3169 665693 15052 M25.531 Tingling and pain in right wrist consistent with carpal tunnel syndrome- Advised to continue wrist splints and tylenol and Ibuprofen alternativ lexi for pain- Avoid excess use of right wrist- seek medical attention as needed- f/u in 6 weeks Attention deficit hyperactivity disorder 577634802 F90.9 - Controlled with meds-Kendall nue to take Adderall 30 mg and patient endorsed her symptoms are under controlled Overweight 772314820 E66 .3 [id number] MD Dasha Trevino [address] [address] 09/18/2022 10:45:29 09/22/2022 08:28:43 Hypercholesterolemia 66671682 E78.00 - H/o Hyperlipid emia- Refilled Rosuvastat in Active or passive immunization 112896712 Z23 - Given Adacel today in clinic Panic attack 756939960 F 41.0 - controlled - On Alprazolam prn.- D/w patient switching to clonazepam and explained both Xanax and clonazepam works similar way, but clonazepam slowly kicks in and effect remains longer and less addicting than xanax. Patient agreed to plan Screening for malignant neoplasm of cervix 461765334 Z12.4 - upto date, so for normal- Usually Her OBGYN keeps track of pap smears Screening mammography 24 779895 Z12.31 - upto date, so for normal- Usually Her OBGYN keeps track of her mammograms Screening for malignant neoplasm of colon 148951486 Z12.11 - will f/u in next visit Smoker 42749338 F17.200 - H/o 30 pack year- Counselled try to cut down 2 cigarettes a day- Given info about smoking cessation resources and patient denies this time [id number] MD Dasha Contreras [address] [address] 12/19/2022 16:09:36 12/22/2022 13:40:21 Adult attention deficit hyperactivity disorder 918182270 F90.9 - Chronic, controlled - On Adderall ER 30 mg- urine drug screen- f/u 6 months Insomnia 126197691 G47.0 0 - D/w healthy sleep patterns like avoiding caffeine intake after 3 pm, no screen time 2 hours before sleep, eating dinner early- Melatonin 5 mg [id number] MD Dasha HILL 47 3 [facility] [address] [place] [address] 04/10/2023 14:50:35 04/15/2023 16:17:09 Depressive disorder 01860684 F32.A Uncontroll ed, PHQ-9 is 19 today- Denies SI, HI or Auditory or visual hallucinat ions- Started sertraline 25 mg to her regular sertraline 50 mg and prescripti on has been sent to pharmacy- Seek medical help if symptoms get worse- F/u in 1 month Administra tion of influenza vaccine 97135811 Z23 Given flu shot today [id number] DO Dasha VU 47 3 [facility] [address] [place] [address] 07/02/2023 15:14:10 07/09/2023 09:15:53 Hyperlipidemia 66988373 E78.5 - Continue to take Rosuvastat in 10 mg Attention deficit hyperactivity disorder 093176594 F90.9 - Controlled with meds- Had a long conversati on with patient regarding Adderall use, she's on stimulant and depression meds which usually don't go well together. Encouraged to see psychiatry and provided the list to call to set up appt. Pt v/u understand ing- Refill Adderall 30 mg Depressive disorder 1564 9000 F32.A Uncontroll ed, PHQ-9, 19-> 10. BRANDIE-7 of 7- Denies SI, HI or Auditory or visual hallucinat ions- Takes Sertraline 25+ 50 mg , total of 75 mg- Seek medical help if symptoms get worse- F/u 3 months Pain in ri ght hip joint 2728478001 16824 M25.551 Smoker 05870962 F17.200 - H/o 30 pack year- Counselled try to cut down 2 cigarettes a day- Given info about smoking cessation resources and patient denies this time [id number] Jimena West-MD Dasha Michele 47 3 [facility] [address] [place] [address] 09/04/2023 09:19:43 09/08/2023 09:41:13 Pain in right hip joint 7213889883 91444 M25.551 Pain in the R hip joint started couple of months ago. X ray negative for new changes and MRI hip shows Small focal tear in the right hip superior labrum. Working with PT and thinks not helping with pain and worsening pain recently. Was seen in the ED recently for the same reason and was prescribed Meloxicam which is also not helping with pain.- Discussed Orthopedic referral for further evaluation with arthroscop ic repair and referral made.- Started on Tramadol and advised Tylenol 1000 mg TID- RTC in 2 weeks [id number] MD Dasha STAUFFER [address] [address] 01/07/2024 09:02:04 01/12/2024 09:36:37 Pre-surgery evaluation 307741535 Z01.818 Scheduled forL4 hemilamine ctomy and L4-L5 discectomy ( possible Laminectom y) on January [address] Lyon for lumbar radiculopa thy.- RCRI is 0 at class 1 risk with 3.9% cardiac event in 30 days- Vitals in office stable- Counselled not to take meloxicam or other NSAIDS 5 days prior to surgery including Adderall.- Medical clearance form filled and given to patient. Will fax Dr. Lyon's office.- F/u in 2 months [id number] Jimena patel MD [place] [address] [address] [address] 05/20/2024 17:10:36 05/31/2024 13:12:00 Obesity 283160347 E66.9 Elevated blood-pressure reading without diagnosis of hypertension 770020628 R03.0 147/81-> 153/84 mm HgDiscusse d to monitor home BP's get the log to clinic in 1 month. Instructio ns given how to measure BP at home. Pt do have cuff at home.D/w to switch Adderall to different med, likely Wellbutrin if she has to be started on BP medsAdvise d healthy life style changes and DASH dietF/u 1 month Screening for malignant neoplasm of cervix 829722793 Z12.4 - upto date, so for normal- Usually Her OBGYN keeps track of pap smears Screening for malignant neoplasm of colon 259822166 Z12.11 - consider in next visit Influenza vaccination declined 573165435 Z28.21 reaccess in next visit [id number] Jimena patel MD [place] [address] [address] 07/22/2024 11:59:23 07/25/2024 16:48:25 Screening for malignant neoplasm of colon 134263378 Z12.11 - Follows with GI in 3 years Elevated blood-pressure reading without diagnosis of hypertension 738274641 R03.0 Elevated BPs in previous visit and today normal BP with in goal.Pt brought home BP logs which are in 120/80 rangeDiscu ssed to slowly come off of Adderall which can increase BPRecommen ded to see behavioral providers in community for ADHD and paper copy of providers in area haydeeKendall myron healthy dietary changes with at least moderate exercise of 150 min/week Obesity 762622517 E66.9 Health Concerns Section Related Observation LastModified by Organization Detai ls LastModified Time None Recorded Concern Status LastModified by Organization Details LastModified Time None Recorded Advance Directives Directive None Recorded Payers Encounter Date Sequence Insurance Name Policy Number Policy Noel Covered Member ID Noel Member ID Guarantor Name 07/02/2023 1 [employer] Iam Hernandez [id number] Tadeo Hernandez 09/04/2023 1 [employer] Iam Hernandez [id number] Tadeo Hernandez 01/07/2024 1 [employer]) Iam Hernandez [id number] Tadeo Hernandez 05/20/2024 1 [employer]) Iam Hernandez [id number] Tadeo Hernandez 07/22/2024 1 [employer]) Iam Hernandez [id number] Tadeo Hernandez Notes Date Note Type Note Provider Name and Address Organization Details Recorded Time 4 text/html Anxiety/DepressionRep orted bypatient.Quality:sym ptoms improved Severity:denies suicidal ideations; able to maintain relationships; does not interfere with activities of daily living Duration:cannot identify Onset/Timing:cannot identify Context:no major life stressors Modifying Factors:medications as directed Associated Symptoms:denies homicidal ideations; no visual/auditory hallucinations; no delusions; no shortness of breath; mood good; no anxiety; no crying spells; maintaining functionality 47 yo F with h/o ADHD, depression here with right hip pain. States she was putting back her thanks giving stuff few months ago and felt low back pain at the end of the day. After that, has been noticing clicking sound with mild pain some times while using stairs. Denies trauma, tingling numbness, radiation of pain etc- Denies changes in bowel/ bladder habits- Sees OBGYN: UTD on pap and mammogram, done this year and normal- Colonoscopy Q 3 years for f/u polyps HOLLIS MOHR DO Attn: Accounting,[address] [facility], [place], [address], [place] [facility] 07/08/2023 14:03:01 4 text/html 48 yo F with h/o ADHD on Adderall, smoker was in the ED last week for LBP is here for MRI hip results.MRI hip shows Small focal tear in the right hip superior labrum and Partially visualized degenerative disc disease at L4-5.States she has pain in the R groin all the time and thinks pain getting worse and worse and sometimes pain radiating down to anterior part of lower leg. 8-9 /10 in intensity.Has back pain intermittentlySeeing PT for low back pain and not helping her, pt concerned about worsening painDenies changes in bowel or urinary habits. Jimena Ceballos MD Attn: Accounting,[address] [facility], [place], [address], [facility] 09/07/2023 13:23:56 4 text/html 48 yo F with h/o ADHD, depression, tobacco dependence, cannabis user is here for medical clearance for elective surgeryscheduled forL4 hemilaminectomy and L4-L5 discectomy( possible Laminectomy) on January [address] Lyon for lumbar radiculopathy.Denies any increase in pain levelNo known h/o cardiac conditions and not on blood thinners LYNN ABDULLAHI MD Attn: Accounting,[address] [place], [address], [place] [facility] 01/11/2024 17:28:59 4 text/html 48 yo F with h/o ADHD, depression, tobacco dependence, cannabis is here for routine f/uHad L4 hemilaminectomy and L4-L5 discectomy( possible Laminectomy) on January [address] Lyon for lumbar radiculopathy.Has no concerns or questions Jimena Ceballos MD Attn: Accounting,[address] [facility], [place], [address], [facility] 05/30/2024 18:12:36 5 text/html 48 yo F with h/o ADHD, depression, panic attacks is here for BP f/uMentions her home BP logs were mostly in 120'sDiscussed to slowly come off of Adderall which can increase BP and see behavioral providers in communityNo other concerns or questions Jimena Ceballos MD Attn: Accounting,[address] [facility], [place], [address], [facility] 07/25/2024 15:52:05 OBGyn Episode No OBEpisode recorded.
--- OUTSIDE RECORDS SUMMARY | 2024-10-04 03:00 | XMS_ITS | Encounter Summary ---
Author Organization [facility] - [facility] Address [facility] [place] [address] Care Team Providers Care [place] [facility] Name Role Phone Luly Gonzalez MD Primary Care Provider [phone] Encounter Details Date Type Department Care Team (Late st Contact Info) Description 03/29/2024 Hosp Visit [facility] [address] [place] [id number] Saroj Rivera, PT [address] [facility] [address] [address] Social History Tobacco Use Types Packs/Day Years Used Date Smoking Tobacco: Every Day Cigarettes Smokeless Tobacco: Never Alcohol Use Standard Drinks/Week Comments Never 0 (1 standard drink = 0.6 oz pur e alcohol) PHQ-2 Answer Date Recorded Patient Health Questionnaire-2 Score 0 10/12/2023 Comments No Sex and Gender Information Value Date Recorded Sex Assigned at Female 11/20/2023 2:47 PM CDT Legal Sex Female 7:21 PM CDT Gender Identity Female 11/20/2023 2:47 PM CDT Sexual Orientation Straight 11/20/2023 2: 47 PM CDT documented as of this encounter Plan of Treatment Not on file documented as of this encounter Visit Diagnoses Not on filedocumented in this encounter Care Teams [place] [facility] Relationship Specialty Start Date End Date Luly Gonzalez MD PCP - General FAMILY PRACTICE 07/02/23 documented as of this encounter
--- OUTSIDE RECORDS SUMMARY | 2024-10-04 03:00 | XMS_ITS | Encounter Summary ---
Author Organization [facility] Address [address] [place] [id number] Care Team Providers Care Comber Setter Name Role Phone Luly Gonzalez MD Primary Care Provider [phone] Encounter Details Date Type Department Care Team (Latest Contact Info) Description 02/03/2024 FlowCardiahart Message Enc [facility] - [facility] [address] [facility], [address] [place] [address] Becka Miller APRN [address] [facility] [address] [place] [address] Physical Therapy Social History Tobacco Use Types Packs/Day Years [...] on filedocumented in this encounter Care Teams Comber Setter Relationship Specialty Start Date End Date Luly Gonzalez MD PCP - General FAMILY PRACTICE 1/18/24 documented as of this encounter
--- OUTSIDE RECORDS SUMMARY | 2024-10-04 03:00 | XMS_ITS | Clinical Summary ---
Author Organization [facility] Address [address] [place] [address] Care Team Providers Care Dirt Shoveler Name Role Phone Luly Gonzalez MD Primary Care Provider [phone] Allergies No known active allergies Medications medroxyPROGESTE Abdullahi (DEPO-PROVERA) 150 MG/ML injection USE 1 VIAL EVERY 12 WEEKS 09/13/2023 Active rosuvastatin (CRESTOR) 10 MG tablet Take 1 tablet (10 mg total) by mouth daily. 08/31/2023 Active amphetamine-dex troamphetamine XR (ADDERALL XR) 30 MG 24 hr capsule Take 1 capsule by mouth daily. 09/27/2023 Active Active Problems Problem Noted Date Diagnosed Date S/P lumbar laminectomy 02/03/2024 S/P discectomy 02/03/2024 Sacroiliitis 02/03/2024 Lumbar radiculopathy 12/23/2023 Spinal stenosis of lumbar re gion without neurogenic claudication 12/23/2023 Other intervertebral disc displacement, lumbar r egion 12/23/2023 Radiculopathy, lumbar region 12/23/2023 Other intervertebral disc degeneration, lumbar r egion 12/23/2023 Social History Tobacco Use Types Packs/Day Years Used Date Smoking Tobacco: Every Day Cigarettes Smokeless Tobacco: Never Tobacco Cessation:Ready to Q uit: Not Asked; Counseling Given: Not Answered Alcohol Use Standard Drinks/Week Comments Never 0 [...] Orientation Straight 11/20/2023 2: 47 PM CDT Last Filed Vital Signs Vital Sign Reading Time Taken Comments Blood Pressure 135/89 03/21/2024 9:50 AM CDT Pulse 98 03/21/2024 9:50 AM CDT Temperature 36.7 C (98 F) 02/03/2024 10:24 AM CDT Respiratory Rate 16 01/26/2024 4:30 PM CDT Oxygen Saturation 96% 03/21/2024 9:50 AM CDT Inhaled Oxygen Concentration - - Weight 76.2 kg (168 lb) 03/21/2024 9:50 AM CDT Height 152.4 cm (5') 03/21/2024 9:50 AM CDT Body Mass Index 32.81 03/21/2024 9:50 AM CDT Plan of Treatment Health Maintenance Due Date Last Done Comments Colorectal Cancer Screening Colonoscopy (10 Years) 1976 Annual Physical 1979 Hepatitis C 1994 Hepatitis B Vaccines (1 of 3 - 19+ 3-dose series) 1995 Pneumococcal Vaccine: Pediatrics (0 to 5 Years) and At-Risk Patients (6 to 49 Years) (1 of 2 - PCV) 1995 Cervical Cancer Screening Pap with HPV Testing (Age 30 to 64) Every 5 Years 2006 Mammogram Screening 11/05/2018 11/05/2016 Cervical Cancer Screening Pap Smear (Age 30 to 64) Every 3 Years 08/12/2021 08/12/2018 Cervical Cancer Screening with HPV 08/12/2021 COVID-19 Vaccine ( season) 2024 06/17/2022, 05/22/2021, 09/06/2020, Additional history exists PHQ-2 (Physician Cochran) 06/15/2024 10/12/2023 DTaP, Tdap and Td Vaccines (2 - Td or Tdap) 09/18/2032 09/18/2022 Meningococcal B Vaccine Aged Out No l onger eligible based on patient's age to complete this topic Meningococcal Vaccine Aged Out No stew cinthia eligible based on patient's age to complete this topic RSV Immunizations Under 20 Months Aged Out No longer eligible based on patient's age to complete this topic Procedures Procedure Name Priority Date/Time Associated Diagnosis Comments MAMMOGRAM GENERIC (SCAN ORDER) Routine 11/05/2016 10:57 AM CDT from Last 3 Months or Most Recently Relevant to Health Maintenance Results * MAMMOGRAM GENERIC (11/05/2016 10:57 AM CDT) Anatomical Region Laterality Modality Other 11/05/2016 10:5 7 AM CDT 11/05/2016 10:57 AM CDT Narrative 11/05/2016 11:02 AM CDT NATHANIEL ANDRES ADMIT/SERVICE DATE: 11/05/16 ACCT: [id number] DISCHARGE DATE: : 1975 SEX: F ORD SITE: [facility] PT TYPE: REG CLI ORDERING MD: AKHIL MUNOZ NP STUDY DATE REPORT # ORDER # EXT ORDER ID 11/05/16 [id number] PROC CODE: MAMSCWCBIL PROCEDURE DESCRIPTION: MG SCRN MAMM ALFREDO W WO CAD IMPRESSION: NO MAMMOGRAPHIC EVIDENCE FOR NEOPLASM. ASSESSMENT: ACR BI-RADS CATEGORY 2 - BENIGN. RECOMMENDATION: 1: ROUTINE SCREENING MAMMOGRAM BILATERAL IN 1 YEAR COMMENTS: A NEGATIVE OR BENIGN MAMMOGRAPHY REPORT SHOULD NOT DISCOURAGE FOLLOW-UP OR BIOPSY OF A CLINICALLY SIGNIFICANT FINDING AND/OR ABNORMALITY. REGIONS OF DENSE BREAST TISSUE MAY OBSCURE SMALL NEOPLASMS. EXAMINATION: DIGITAL BILATERAL SCREENING MAMMOGRAM CLINICAL HISTORY: NO CURRENT SYMPTOMS OR COMPLAINTS. COMPARISON: NONE. TECHNIQUE: DIGITAL SCREENING MAMMOGRAPHY OF BOTH BREASTS WAS PERFORMED. THIS STUDY WAS READ WITH THE ASSISTANCE OF A COMPUTER-AIDED DETECTION SYSTEM. TISSUE DENSITY: THE BREAST TISSUE IS HETEROGENEOUSLY DENSE. FINDINGS: CRANIOCAUDAD AND MEDIAL LATERAL OBLIQUE MAMMOGRAPHIC VIEWS OF BOTH BREASTS WERE OBTAINED. THERE IS NO DOMINANT MASS. THERE ARE NO SUSPICIOUS MICROCALCIFICATIONS. THERE ARE NONSPECIFIC AREAS OF ASYMMETRIC BREAST PARENCHYMA. BENIGN-APPEARING CALCIFICATIONS ARE SEEN. ELECTRONICALLY SIGNED BY: IFEANYI PAZ11/05/2016 10:57 AM Procedure Note , Juventino Conversion, - 04/07/2018 NATHANIEL ANDRESZABETH ADMIT/SERVICE DATE:11/05/16 ACCT: [id number] DISCHARGE DATE: : 1975 SEX: F [facility] TYPE: REG CLI ORDERING MD:AKHIL MUNOZ NP STUDY DATE REPORT # ORDER # EXT ORDER ID 11/05/16 [id number] PROC CODE: MAMSCWCBIL PROCEDURE DESCRIPTION: MG SCRN MAMM ALFREDO W WO CAD IMPRESSION: NO MAMMOGRAPHIC EVIDENCE FOR NEOPLASM. ASSESSMENT: ACR BI-RADS CATEGORY 2 - BENIGN. RECOMMENDATION: 1: ROUTINE SCREENING MAMMOGRAM BILATERAL IN 1 YEAR COMMENTS: A NEGATIVE OR BENIGN MAMMOGRAPHY REPORT SHOULD NOT DISCOURAGE FOLLOW-UP OR BIOPSY OF A CLINICALLY SIGNIFICANT FINDING AND/OR ABNORMALITY. REGIONS OF DENSE BREAST TISSUE MAY OBSCURE SMALL NEOPLASMS. EXAMINATION: DIGITAL BILATERAL SCREENING MAMMOGRAM CLINICAL HISTORY: NO CURRENT SYMPTOMS OR COMPLAINTS. COMPARISON: NONE. TECHNIQUE: DIGITAL SCREENING MAMMOGRAPHY OF BOTH BREASTS WAS PERFORMED. THIS STUDY WAS READ WITH THE ASSISTANCE OF A COMPUTER-AIDED DETECTION SYSTEM. TISSUE DENSITY: THE BREAST TISSUE IS HETEROGENEOUSLY DENSE. FINDINGS: CRANIOCAUDAD AND MEDIAL LATERAL OBLIQUE MAMMOGRAPHIC VIEWS OF BOTH BREASTS WERE OBTAINED. THERE IS NO DOMINANT MASS. THERE ARE NO SUSPICIOUS MICROCALCIFICATIONS. THERE ARE NONSPECIFIC AREAS OF ASYMMETRIC BREAST PARENCHYMA. BENIGN-APPEARING CALCIFICATIONS ARE SEEN. ELECTRONICALLY SIGNED BY: IFEANYI PAZ11/05/2016 10:57 AM Akhil Munoz NP SCANNING Final Result from Last 3 Months or Most Recently Relevant to Health Maintenance Insurance Care Teams Dirt Shoveler Relationship Specialty Start Date End Date Luly Gonzalez MD PCP - General FAMILY PRACTICE 07/02/23
--- OUTSIDE RECORDS SUMMARY | 2024-10-04 03:00 | XMS_ITS | Referral Summary ---
Author Organization [facility] [place] [address] [facility] [address] Address [address] [place] [address] Care Team Providers Care Copy Center Operator Name Role Phone Luly Gonzalez MD Primary Care Provider [phone] Allergies No known active allergies Medications meloxicam (MOBIC) 7.5 mg tabletIndication s:acute pain Take 1 tablet (7.5 mg total) by mouth every 12 (twelve) hours as needed for pain 30 tablet 08/20/2023 Active orphenadrine ER (NORFLEX) 100 mg 12 hr tabletIndication s:Muscle Spasm Take 1 tablet (100 mg total) by mouth 2 (two) times a day 20 tablet 08/20/2023 Active Social History Tobacco Use Types Packs/Day Years Used Date Smoking Tobacco: Never Assessed Personal Safety Answer Date Recorded Have you ever been in or are you currently in a harmful physical or emotional relationship or is someone making you feel afraid or unsafe? Denies 08/20/2023 Comments Unknown Sex and Gender Information Value Date Recorded Sex Assigned at Not on file Legal Sex Female 2:35 AM ELECTRONIC PUBLICATIONS SPECIALIST Gender Identity Not on file Sexual Orientation Not on file Last Filed Vital Signs Vital Sign Reading Time Taken Comments Blood Pressure 154/90 08/20/2023 10:00 PM ELECTRONIC PUBLICATIONS SPECIALIST Pulse 64 08/20/2023 10:40 PM ELECTRONIC PUBLICATIONS SPECIALIST Temperature 36.9 C (98.4 F) 08/20/2023 7:00 PM ELECTRONIC PUBLICATIONS SPECIALIST Respiratory Rate 18 08/20/2023 10:00 PM ELECTRONIC PUBLICATIONS SPECIALIST Oxygen Saturation 99% 08/20/2023 10:40 PM ELECTRONIC PUBLICATIONS SPECIALIST Inhaled Oxygen Concentration - - Weight 74.8 kg (165 lb) 08/20/2023 4:48 PM ELECTRONIC PUBLICATIONS SPECIALIST Height 154.9 cm (5' 1 ) 08/20/2023 4:48 PM ELECTRONIC PUBLICATIONS SPECIALIST Body Mass Index 31.18 08/20/2023 4:48 PM ELECTRONIC PUBLICATIONS SPECIALIST Plan of Treatment Not on file Insurance [facility] Care Teams Copy Center Operator Relationship Specialty Start Date End Date Luly Gonzalez MD [address] [id number] PCP - General Family Medicine 08/20/23
--- OUTSIDE RECORDS SUMMARY | 2024-10-04 03:00 | XMS_ITS | Clinical Summary ---
Author Organization [facility] Address [address] [place] [phone] Phone Care Team Providers Care Linotype Machinist Name Role Phone Unavailable Primary Care Provider Unavailabl e Allergies No known active allergies Medications medroxyPROGESTERon e (DEPO-PROVERA) 150 mg/mL Syringe INJECT 1 PRE FILLED IN THE MUSCLE EVERY 12 WEEKS 2 Active rosuvastatin (CRESTOR) 10 mg tabletIndications: Elevated LDL cholesterol level TAKE 1 TABLET DAILY 90 Tablet 3 2 Active amphetamine-dextro amphetamine (Adderall XR) 30 mg Extended Release 24 hour capsuleIndications :Attention deficit disorder, unspecified hyperactivity presence Take 1 Capsule (30 mg) by mouth daily in the morning. Max Daily Amount: 30 mg 30 Capsule 2 Active Active Problems Problem Noted Date Diagnosed Date Smoker 12/11/2021 ADD (attention deficit disorder) 12/11/2021 Elevated LDL cholesterol level 07/23/2020 Immunizations Immunization Administration Dates Next Due ([facility])(12 YR UP) COVID-19 VACCINE - EMERGENCY USE AUTHORIZATION, MRNA, [id number](PF) 30 MCG/0.3 ML IM SUSP 05/22/2021,09/06/2020,08/16/2020 INFLUENZA VACCINE QUADRIVALE NT 6 MOS UP PF IM 03/05/2022,05/15/2020 Family History Medical History Relation Name Comments No Known Problems Daughter Unknown Father No Known Problems Half-Brother 1 Other Half-Brother 2 Spinabifida No Known Problems Half-Sister Heart Attack Maternal Grandfather Pacemaker Maternal Grandmother Diabetes Mother Heart Disease Mother Hypertension Mother Unknown Paternal Grandfather Unknown Paternal Grandmother No Known Problems Son Relation Name Status Comments Daughter Alive Father Alive Half-Brother 1 Alive Half-Brother 2 Half-Sister Alive Maternal Grandfather Maternal Grandmother Alive Mother Alive Paternal Grandfather Alive Paternal Grandmother Son Alive Social History Tobacco Use Types Packs/Day Years Used Date Smoking Tobacco: Every Day Cigarettes Smokeless Tobacco: Never Tobacco Cessation:Ready to Q uit: No; Counseling Given: Yes Alcohol Use Standard Drinks/Week Comments Yes 0 (1 standard drink = 0.6 oz pur e alcohol) rare Comments No Sex and Gender Information Value Date Recorded Sex Assigned at Not on file Legal Sex Female 12:51 PM RELEASE OF INFORMATION SPECIALIST Gender Identity Not on file Sexual Orientation Not on file Last Filed Vital Signs Vital Sign Reading Time Taken Comments Blood Pressure 120/70 03/05/2022 11:04 AM CDT Pulse 102 03/05/2022 11:04 AM CDT Temperature 36.9 C (98.5 F) 03/05/2022 11:04 AM CDT Respiratory Rate 16 03/05/2022 11:04 AM CDT Oxygen Saturation 97% 03/05/2022 11:04 AM CDT Inhaled Oxygen Concentration - - Weight 70.3 kg (155 lb) 03/05/2022 11:04 AM CDT Height 154.9 cm (5' 1 ) 03/05/2022 11:04 AM CDT Body Mass Index 29.29 03/05/2022 11:04 AM CDT Plan of Treatment Health Maintenance Due Date Last Done Comments DTAP/TDAP/TD VACCINES (1 - Tdap) 1995 HEPATITIS B VACCINES (1 of 3 - 19+ 3-dose series) 1995 COLORECTAL SCREENING 2021 Colorectal Cancer Screening 2021 FIT-DNA Q 3 years 2021 FIT/FOBT Q 1 year 2021 Flex Sig/CT Colonography Q 5 years 2021 BREAST CANCER SCREENING 10/18/2022 10/19/19 22, 10/18/2021, 08/13/2020 (Previously completed), Additional history exists HPV/Cotest (21-29) 08/12/2023 08/12/2018 HPV/Cotest (30-65) 08/12/2023 08/12/2018 INFLUENZA VACCINE (#1) 2024 03/05/2022, 2019 COVID-19 Vaccine (4 - 2024-2 5 season) 2024 05/22/2021, 09/06/2020, 08/16/2020 CERVICAL CANCER SCREENING 02/25/2025 PAP SMEAR 02/25/2025 02/25/2022 (Prev iously completed), 08/12/2018 Procedures Procedure Name Priority Date/Time Associated Diagnosis Comments MAMMO SCREENING BILAT Routine 10/18/2021 HPV HIGH RISK DNA DETECTION Routine 08/12/2018 1:45 PM RELEASE OF INFORMATION SPECIALIST CERV/VAG CYTO SCREEN PAP W/HPV Routine 08/12/2018 1:45 PM RELEASE OF INFORMATION SPECIALIST Cervical cancer screening from Last 3 Months or Most Recently Relevant to Health Maintenance Results * MAMMO SCREENING BILAT (10/18/2021) Anatomical Region Laterality Modality Breast Bilateral Mammography us Caty Klein MD MAMMO ORDERABLES Final Re sult * CERV/VAG CYTO SCREEN PAP W/HPV (08/12/2018 1:45 PM RELEASE OF INFORMATION SPECIALIST) DIAGNOSIS (PAP): Comment [facility] Comment:NEGATIVE FOR INTRAEP ITHELIAL LESION OR MALIGNANCY. ADEQUACY: Comment [facility] Comment: Satisfactory for evaluation. Endocervical and/or squamous metaplastic cells (endocervical component) are present. CLINICIAN PROVIDED ICD10 Comment [facility] Comment:Z12.4 PERFORMED BY (PAP): Comment [facility] Comment:Paddy Johnson totechnologist (ASCP) RESULT (PAP): . [facility] SEE NOTE (PAP): Comment [facility] Comment: The Pap smear is a screening test designed to aid in the detection of premalignant and malignant conditions of the uterine cervix. It is not a diagnostic procedure and should not be used as the sole means of detecting cervical cancer. Both false-positive and false-negative reports do occur. CYTOLOGY TAX SERVICES SPECIALIST METHODOLOGY Comment [facility] Comment: This liquid based ThinPrep(R) pap test was screened with the use of an image guided system. HPV HIGH RISK DETECTION CANCELED [facility] Comment: The quantity of specimen remaining in the vial after Pap slide preparation was less than the 4 mL minimum cell suspension required. Low sample cellularity may be the cause. See HPV, low volume rfx test result. This high-risk HPV test detects thirteen high-risk types (16/18/31/33/35/39/45/51/52/56/58/59/68) without differentiation. Result canceled by the ancillary Genital SWAB OF ENDOCERVIX / Unknown 08/12/2018 1:45 PM RELEASE OF INFORMATION SPECIALIST 08/12/2018 Narrative [facility] - 08/17/2018 3:36 AM RELEASE OF INFORMATION SPECIALIST Performed at: [address] [id number] Body Specialist: Gabi Sparks MD, Phone: [phone] Performed at: [address] [id number] Body Specialist: Gabi Sparks MD, Phone: [phone] Specimen Comment: No. of containers..01 ThinPrep Vial Patti Gonzales NP PATHOLOGY/CYTOLOGY ORDE MYRIAM Edited Result - Final Performing Organization Address [facility] Co de Phone Number [facility] [phone] * HPV HIGH RISK DNA DETECTION (08/12/2018 1:45 PM RELEASE OF INFORMATION SPECIALIST) HPV HIGH RISK DETECTION Negative Negative [facility] Comment: This test detects fourteen high-risk HPV types (16,18,31,33,35,39,45, 51,52,56,58,59,66,68) without differentiation. 08/12/2018 1:45 PM RELEASE OF INFORMATION SPECIALIST 08/12/2018 Narrative [facility] - 08/17/2018 3:36 AM RELEASE OF INFORMATION SPECIALIST Performed at: [address] [id number] Body Specialist: Gabi Sparks MD, Phone: [phone] Patti Gonzales NP PATHOLOGY/CYTOLOGY ORDE RABLES Final Result Performing Organization Address [facility] de Phone Number [facility] [phone] from Last 3 Months or Most Recently Relevant to Health Maintenance Insurance * Guarantor: [employer] ([employer]) Account Type Relation to Patient Date of Phone Billing Address Corporate Employer ATTN: [employer]OG[employer] [address] OPEN ACCESS * Guarantor: [employer] Account Type Relation to Patient Date of Phone Billing Address Corporate Employer 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
--- OUTSIDE RECORDS SUMMARY | 2024-10-04 03:00 | XMS_ITS | Clinical Summary ---
Author Organization [facility] [address] [facility] 162 Address [address] [place] [address] Care Team Providers Care Shell Fisherman Name Role Phone Luly Gonzalez MD Primary Care Provider [phone] Allergies No known active allergies Medications meloxicam [...] on file Legal Sex Female 2:35 AM CLOTH FRAMER Gender Identity Not on file Sexual Orientation Not on file Last Filed Vital Signs Vital Sign Reading Time Taken Comments Blood Pressure 154/90 08/20/2023 10:00 PM CLOTH FRAMER Pulse 64 08/20/2023 10:40 PM CLOTH FRAMER Temperature 36.9 C (98.4 F) 08/20/2023 7:00 PM CLOTH FRAMER Respiratory Rate 18 08/20/2023 10:00 PM CLOTH FRAMER Oxygen Saturation 99% 08/20/2023 10:40 PM CLOTH FRAMER Inhaled Oxygen Concentration - - Weight 74.8 kg (165 lb) 08/20/2023 4:48 PM CLOTH FRAMER Height 154.9 cm (5' 1 ) 08/20/2023 4:48 PM CLOTH FRAMER Body Mass Index 31.18 08/20/2023 4:48 PM CLOTH FRAMER Plan of Treatment Health Maintenance Due Date Last Done Comments Cervical Cancer Screening 1975 Colon Cancer Screening-Colonoscopy 1976 Depression Screening 1976 Hepatitis C Screening 1976 Hepatitis B Screening 1994 Regular Well Visit/Exam 18-64 1994 Breast Cancer Screening-Mammogram 10/18/2022 10/18/2021 Covid-19 Vaccine ( season) 2024 06/17/2022, 05/22/2021, 09/06/2020, Additional history exists Influenza Vaccine (#1) 2024 , 03/05/2022, 05/15/2020, Additional history exists DTaP/Tdap/Td Vaccine (2 - Td or Tdap) 09/18/2032 09/18/2022 Pneumococcal vaccine <65 Aged Out No longer eligible based on patient's age to complete this topic Insurance [facility]GI[facility] Care Teams Shell Fisherman Relationship Specialty Start Date End Date Luly Gonzalez MD [address] [address] PCP - General Family Medicine 08/20/23
[2024-10-04 08:06] VITALS: BP 131/70; PULSE 91; RESP 18; TEMP 36.7; O2SAT 98
[2024-10-04 08:15] LABS: BEDSIDEPREGUCG Negative (Negative)
[2024-10-04] MEDS: LACTATED RINGERS 1,000 ML 150 ML IV CONT (08:20)
--- NOTE | 2024-10-04 08:40 | P.PNAN_ITS ---
Anes - Initial Pre Proc Eval Procedure: Operation Date: 10/04/24 09:30 Proposed Procedures p Colonoscopy - Mark Ch MD Date/Time: 10/04/24 08:40 Surgeon: Mark Ch MD Pre Op Diagnosis: Personal history of colon polyps, unspecified Patient Data Age: 49 Gender: F Height: 1.55 m Weight: 75.6 kg Last Vital Signs Temp 36.7 C 10/04/24 08:06 Pulse 91 10/04/24 08:06 Resp 18 10/04/24 08:06 BP 131/70 10/04/24 08:06 Pulse Ox 98 10/04/24 08:06 O2 Del Method Room Air 10/04/24 08:06 Allergies Allergy/AdvReac Type Severity Reaction Status Date / Time No Known Allergies Allergy Verified 09/22/24 13:26 Home Medications ?Medication ?Instructions ?Recorded ?Confirmed ?Type medroxyprogesterone 150 mg/mL 150 mg IM DIRECTED 09/05/21 10/04/24 History intramuscular syringe rosuvastatin 10 mg tablet 10 mg PO DAILY 09/05/21 10/04/24 History dextroamphetamine-amphetamine ER 30 mg PO DAILY 01/28/22 10/04/24 History 20 mg 24hr capsule,extend release (Adderall XR) Laboratory Tests 10/04/24 08:12 POC Urine HCG, Qual Negative (Negative) Patient hx anesthesia problems: none Family hx anesthesia problems: none Results Review: All pre-operative results and documents have been reviewed as part of the pre- operative evaluation. [facility] Past Medical History Medical History ADHD Hyperlipidemia Surgical History Surgical History History of section Hx of cholecystectomy Social History Social History (Updated 10/04/24 @ 08:40 by Godwin Marc MD) Smoking packs per day: 1 Smoking cigarettes per day: 20.0 Years smoked: 32 Smoking pack-years: 32.00 Smoking status: Current some day smoker Tobacco type: cigarettes Alcohol intake: never Substance use: never Substance use type: does not use Living arrangements: with family Gender identity (if verbalized by the patient): Female Spiritual care concerns: No Anes - Eval Final PreProcedure Day of Procedure 10/04/24 08:40 Patient weight: obese Heart: regular rate and rhythm Lungs: clear to auscultation Airway: Mallampati scale class II Neurological: alert and oriented Last oral intake: >/= 8 hours ASA classification: III Emergent: no Anesthetic plan: proceed Anesthesia type and monitoring: general GIVS and standard monitoring Results Review: All pre-operative results and documents have been reviewed as part of the pre- operative evaluation. Informed Consent: The patient's anesthetic plan and its attendant risks and benefits were discussed with the patient/family/POA. Questions were solicited and answers provided to the satisfaction of the patient/family/POA.
--- NOTE | 2024-10-04 09:23 | PM.IMHP ---
H&P: HPI History of Present Illness Date/Time: 10/04/24 09:23 Chief Complaint: History of colon polyps Narrative: The patient has a history of colonic polyps, the last colonoscopy was 3 years ago, finding to tubulovillous adenomas. Review of Systems Review of Systems: All systems reviewed & are unremarkable except as noted in HPI and below PMFSH Past Medical History Medical History ADHD Hyperlipidemia Surgical History Surgical History History of section Hx of cholecystectomy Social History Social History (Updated 10/04/24 @ 08:40 by Godwin Marc MD) Smoking packs per day: 1 Smoking cigarettes per day: 20.0 Years smoked: 32 Smoking pack-years: 32.00 Smoking status: Current some day smoker Tobacco type: cigarettes Alcohol intake: never Substance use: never Substance use type: does not use Living arrangements: with family Gender identity (if verbalized by the patient): Female Spiritual care concerns: No Meds Home Medications and Allergies Home Medications ?Medication ?Instructions ?Recorded ?Confirmed ?Type medroxyprogesterone 150 mg/mL 150 mg IM DIRECTED 09/05/21 10/04/24 History intramuscular syringe rosuvastatin 10 mg tablet 10 mg PO DAILY 09/05/21 10/04/24 History dextroamphetamine-amphetamine ER 30 mg PO DAILY 01/28/22 10/04/24 History 20 mg 24hr capsule,extend release (Adderall XR) Allergies Allergy/AdvReac Type Severity Reaction Status Date / Time No Known Allergies Allergy Verified 09/22/24 13:26 Vital Signs Vital Signs - 24 hr 10/04/24 08:06 Temperature 98.1 F Pulse Rate 91 Respiratory Rate 18 Blood Pressure 131/70 Pulse Oximetry 98 Oxygen Delivery Room Air Exam Const: General: cooperative and healthy appearing Resp: Effort & Inspection: normal respiratory effort and able to speak in complete sentences Auscultation: clear to auscultation bilaterally Cardio: Rate: regular rate Rhythm: regular rhythm GI: Inspection: normal to inspection GI Palp: No No hepatosplenomegaly present Auscultation: normal bowel sounds Rectal Exam: deferred Skin: General skin exam: normal color Psych: Appearance: grossly normal Mental Status: mental status grossly normal Assessment and Plan Assessment and plan (1) Colon cancer screening: Code(s): Z12.11 - Encounter for screening for malignant neoplasm of colon Status: Acute Assessment and Plan: The patient is deemed a good candidate for the procedure. Consent signed. Will proceed.
[2024-10-04 09:57] VITALS: BP 119/68; PULSE 68; RESP 26; O2SAT 99
[2024-10-04 10:07] VITALS: BP 128/82; PULSE 65; RESP 12; O2SAT 100
[2024-10-04 10:17] VITALS: BP 138/74; PULSE 70; RESP 15; O2SAT 99
== END 2024-10-04 10:30 | disposition home or self-care (01) ==
PROVIDERS: Anesthesiology; Referring Provider Internal Medicine Gastroenterology; Visit Provider Internal Medicine Gastroenterology
PROC: 0DJD8ZZ Inspection of Lower Intestinal Tract, Via Natural or Artificial Opening Endoscopic (ICD-10-PCS; CPT 45378; principal; 2024-10-04 09:30)
DX: Z12.11 Encounter for screening for malignant neoplasm of colon (principal); D12.0 Benign neoplasm of cecum; K57.30 Diverticulosis of large intestine without perforation or abscess without bleeding; F17.210 Nicotine dependence, cigarettes, uncomplicated; E66.9 Obesity, unspecified; Z68.31 Body mass index [BMI] 31.0-31.9, adult
CPT/HCPCS: 45385; 88305; J2003; J2704; J7120

== ENCOUNTER 2025-01-24 15:43 | Outpatient (CLI) | payer OTHER, SELFPAY ==
--- NOTE | ~2025-01-24 | MM_ITS ---
EXAMINATION: MM screening julio BI w shawn HISTORY: Screening TECHNIQUE: Craniocaudal and mediolateral oblique 3-D tomosynthesis images were obtained and synthetic 2-D images were generated. CAD analysis was submitted and interpreted. COMPARISON: Comparison to multiple prior studies sequentially, with oldest reviewed study dated 11/05. BREAST PARENCHYMAL COMPOSITION: Not dense: There are scattered areas of fibroglandular density. FINDINGS: There is an obscured low density mass in the upper outer quadrant of the right breast, midd le depth. There is no mammographic evidence for malignancy in the left breast. IMPRESSION: 1. Low-density mass upper outer quadrant of the right breast, middle depth. 2. Additional mammographic views and possible breast ultrasound are recommended. BI-RADS Category 0: Incomplete: Needs additional imaging evaluation. Reviewed, dictated and finalized at location A. IMPRESSION: 1. Low-density mass upper outer quadrant of the right breast, middle depth. 2. Additional mammographic views and possible breast ultrasound are recommended . BI-RADS Category 0: Incomplete: Needs additional imaging evaluation.
--- OUTSIDE RECORDS SUMMARY | 2025-01-24 15:49 | XMS_ITS | Clinical Summary ---
Author Organization [facility] Address [address] [place] [phone] Phone Care Team Providers Care Editor City Name Role Phone Unavailable Primary Care Provider [...] 07/23/2020 Immunizations Immunization Administration Dates Next Due (BasharJobs)(12 YR UP) COVID-19 VACCINE - EMERGENCY USE AUTHORIZATION, MRNA, [id number](PF) 30 MCG/0.3 ML IM SUSP 05/22/2021,09/06/2020,08/16/2020 INFLUENZA [...] on file Legal Sex Female 12:51 PM SALES MGR Gender Identity Not on file Sexual Orientation [...] 11:04 AM CDT Height 154.9 cm (5' 1) 03/05/2022 11:04 AM CDT Body Mass Index [...] (21-29) 08/12/2023 08/12/2018 HPV/Cotest (30-65) 08/12/2023 08/12/2018 COVID-19 Vaccine (2023-2 5 season) 2024 05/22/2021, 09/06/2020, 08/16/2020 INFLUENZA VACCINE (#1) 2025 03/05/2022, 2019 CERVICAL CANCER SCREENING 02/25/2025 PAP SMEAR 02/25/2025 02/25/2022 (Prev iously completed), 08/12/2018 Procedures Procedure Name Priority Date/Time Associated Diagnosis Comments MAMMO SCREENING BILAT Routine 10/18/2021 HPV HIGH RISK DNA DETECTION Routine 08/12/2018 1:45 PM SALES MGR CERV/VAG CYTO SCREEN PAP W/HPV Routine 08/12/2018 1:45 PM SALES MGR Cervical cancer screening from Last 3 Months or Most Recently Relevant to Health Maintenance Results * MAMMO SCREENING BILAT (10/18/2021) Anatomical Region Laterality Modality Breast Bilateral Mammography us Caty Klein MD MAMMO ORDERABLES Final Re sult * CERV/VAG CYTO SCREEN PAP W/HPV (08/12/2018 1:45 PM SALES MGR) DIAGNOSIS (PAP): Comment [facility] Comment:NEGATIVE FOR [...] false-positive and false-negative reports do occur. CYTOLOGY TATTOO IDENTIFIER METHODOLOGY Comment [facility] Comment: This liquid [...] OF ENDOCERVIX / Unknown 08/12/2018 1:45 PM SALES MGR 08/12/2018 Narrative [facility] - 08/17/2018 3:36 AM SALES MGR Performed at: [address] [id number] Generator Worker: Gabi Sparks MD, Phone: [phone] Performed at: [address] [id number] Generator Worker: Gabi Sparks MD, Phone: [phone] Specimen Comment: No. of containers..01 ThinPrep Vial Patti Gonzales NP PATHOLOGY/CYTOLOGY ORDE MYRIAM Edited Result - Final Performing Organization Address [facility] Co de Phone Number [facility] [phone] * HPV HIGH RISK DNA DETECTION (08/12/2018 1:45 PM SALES MGR) HPV HIGH RISK DETECTION Negative Negative [facility] Comment: This test detects fourteen high-risk HPV types (16,18,31,33,35,39,45, 51,52,56,58,59,66,68) without differentiation. 08/12/2018 1:45 PM SALES MGR 08/12/2018 Narrative [facility] - 08/17/2018 3:36 AM SALES MGR Performed at: [address] [id number] Generator Worker: Gabi Sparks MD, Phone: [phone] Patti Gonzales NP PATHOLOGY/CYTOLOGY ORDE RABLES Final Result Performing Organization Address [facility] de Phone Number [facility] [phone] from Last 3 Months or Most Recently Relevant to Health Maintenance Insurance * Guarantor: [employer] H EDDIE Valdez (C) Account Type Relation to Patient Date of Phone Billing Address Corporate Employer ATTN: KEISHA CORNEJO [address] OPEN ACCESS * Guarantor: [employer] Account Type Relation to Patient Date of Phone Billing Address Corporate Employer ATTN: SALOME ROGERS [address] [address]
--- OUTSIDE RECORDS SUMMARY | 2025-01-24 15:49 | XMS_ITS | Encounter Summary ---
Author Organization [facility] Address [address] [place] [address] Care Team Providers Care Swing Grinder Name Role Phone Luly Gonzalez MD Primary Care Provider [phone] Encounter Details Date Type Department Care Team (Latest Contact Info) Description 02/03/2024 Spotistichart Message Enc [facility] Multispecialty Care - [facility] [address] [facility], [address] [place] [address] Becka Miller APRN [address] [facility] [address] [place] [address] Physical Therapy Social History Tobacco Use Types [...] on filedocumented in this encounter Care Teams Swing Grinder Relationship Specialty Start Date End Date Luly Gonzalez MD PCP - General FAMILY PRACTICE 1/18/24 documented as of this encounter
--- OUTSIDE RECORDS SUMMARY | 2025-01-24 15:49 | XMS_ITS | Clinical Summary ---
Author Organization [facility] [address] [facility] [address] Address [address] [place] [address] Care Team Providers Care Line Server Name Role Phone Luly Gonzalez MD Primary Care Provider [phone] Allergies No known active allergies Medications meloxicam [...] on file Legal Sex Female 2:35 AM DIESEL RETROFIT INSTALLER Gender Identity Not on file Sexual Orientation Not on file Last Filed Vital Signs Vital Sign Reading Time Taken Comments Blood Pressure 154/90 08/20/2023 10:00 PM DIESEL RETROFIT INSTALLER Pulse 64 08/20/2023 10:40 PM DIESEL RETROFIT INSTALLER Temperature 36.9 C (98.4 F) 08/20/2023 7:00 PM DIESEL RETROFIT INSTALLER Respiratory Rate 18 08/20/2023 10:00 PM DIESEL RETROFIT INSTALLER Oxygen Saturation 99% 08/20/2023 10:40 PM DIESEL RETROFIT INSTALLER Inhaled Oxygen Concentration - - Weight 74.8 kg (165 lb) 08/20/2023 4:48 PM DIESEL RETROFIT INSTALLER Height 154.9 cm (5' 1) 08/20/2023 4:48 PM DIESEL RETROFIT INSTALLER Body Mass Index 31.18 08/20/2023 4:48 PM DIESEL RETROFIT INSTALLER Plan of Treatment Health Maintenance Due Date Last Done Comments Cervical Cancer Screening 1975 Colon Cancer Screening-Colonoscopy 1975 Depression Screening 1975 Hepatitis C Screening 1975 Hepatitis B Screening 1994 Regular Well Visit/Exam 18-64 1994 Breast Cancer Screening-Mammogram 10/18/2022 10/18/2021 Covid-19 Vaccine ( season) 2024 06/17/2022, 05/22/2021, 09/06/2020, Additional history exists Influenza Vaccine (#1) 2025 , 03/05/2022, 05/15/2020, Additional history exists DTaP/Tdap/Td Vaccine (2 - Td or Tdap) 09/18/2032 09/18/2022 Pneumococcal vaccine <65 Aged Out No longer eligible based on patient's age to complete this topic Insurance [facility] AL[facility]GIANCE Care Teams Line Server Relationship Specialty Start Date End Date Luly Gonzalez MD [address] [address] PCP - General Family Medicine 08/20/23
--- OUTSIDE RECORDS SUMMARY | 2025-01-24 15:49 | XMS_ITS | Encounter Summary ---
Author Organization [facility] Address [facility] [place] [address] Care Team Providers Care Delivery And Installation Subcontractor Name Role Phone Luly Gonzalez MD Primary Care Provider [phone] Encounter Details Date Type Department Care Team (Late st Contact Info) Description 03/29/2024 Hosp Visit [email or web address] Physical Therapy [address] [place] [address] Saroj Rivera, PT [address] [place] [address] Social History Tobacco Use Types Packs/Day Years [...] on filedocumented in this encounter Care Teams Delivery And Installation Subcontractor Relationship Specialty Start Date End Date Luly Gonzalez MD PCP - General FAMILY PRACTICE 07/02/23 documented as of this encounter
--- OUTSIDE RECORDS SUMMARY | 2025-01-24 15:49 | XMS_ITS | Clinical Summary ---
Author Organization [facility] Address [address] [place] [address] Care Team Providers Care Ceramic Research Engineer Name Role Phone Luly Gonzalez MD Primary Care Provider [phone] Allergies No known active allergies Medications medroxyPROGESTE [...] 05/22/2021, 09/06/2020, Additional history exists PHQ-2 (Physician [place]) 06/15/2024 10/12/2023 DTaP, Tdap and Td Vaccines [...] CDT NATHANIEL ANDRES ADMIT/SERVICE DATE: 11/05/16 ACCT: [id number] DISCHARGE DATE: : 1975 SEX: F [facility]D SITE: [facility] PT TYPE: REG CLI ORDERING MD: AKHIL MUNOZ NP STUDY DATE REPORT # ORDER # EXT ORDER ID 11/05/16 [id number] PROC CODE: MAMSCWCBIL PROCEDURE DESCRIPTION: MG SCRN [...] - 04/07/2018 NATHANIEL ANDRESZABETH ADMIT/SERVICE DATE:11/05/16 ACCT: [id number] DISCHARGE DATE: : 1975 SEX: F [facility] TYPE: REG CLI ORDERING MD:AKHIL MUNOZ NP STUDY DATE REPORT # ORDER # EXT ORDER ID 11/05/16 [id number] PROC CODE: MAMSCWCBIL PROCEDURE DESCRIPTION: MG SCRN [...] Relevant to Health Maintenance Insurance Care Teams Ceramic Research Engineer Relationship Specialty Start Date End Date Luly Gonzalez MD PCP - General FAMILY PRACTICE 07/02/23
== END 2025-01-24 15:44 | disposition home or self-care (01) ==
PROVIDERS: Visit Provider Obstetrics & Gynecology Gynecology
DX: Z12.31 Encounter for screening mammogram for malignant neoplasm of breast (principal); N63.11 Unspecified lump in the right breast, upper outer quadrant
CPT/HCPCS: 77063; 77067

== ENCOUNTER 2025-02-20 10:39 | Outpatient (CLI) | payer OTHER, SELFPAY ==
--- NOTE | ~2025-02-20 | MM_ITS ---
EXAMINATION: MM diagnostic julio RT w shawn INDICATION: 49-year old female; BI-RADS 0, callback to evaluate Right breast low-density mass upper outer location. COMPARISON: 01/24/2025 TECHNIQUE: Digital breast tomosynthesis True lateral view and spot compression pain CC and MLO views of Right breast were obtained with computer-aided detection to assist in interpretation of the study. FINDINGS: There are scattered areas of fibroglandular density. The mass seen in the upper outer, middle depth Right breast on the screening mammogram effaces on additional views, compatible with normal overlapping tissue.. IMPRESSION: Right breast finding represents superimposition of fibroglandular tissue. No further investigation necessary. RECOMMENDATION: Annual screening mammography in 12 months BI-RADS 2, BENIGN Reviewed, dictated and finalized at location B. IMPRESSION: Right breast finding represents superimposition of fibroglandular tissue. No fu rther investigation necessary. RECOMMENDATION: Annual screening mammography in 12 months BI-RADS 2, BENIGN
--- OUTSIDE RECORDS SUMMARY | 2025-02-20 10:59 | XMS_ITS | Clinical Summary ---
Author Organization [facility] Address [address] [place] [phone] Phone Care Team Providers Care Chemist Food Name Role Phone Unavailable Primary Care Provider [...] 07/23/2020 Immunizations Immunization Administration Dates Next Due ([employer])(12 YR UP) COVID-19 VACCINE - EMERGENCY USE AUTHORIZATION, MRNA, [id number](PF) 30 MCG/0.3 ML IM SUSP 05/22/2021,09/06/2020,08/16/2020 INFLUENZA [...] on file Legal Sex Female 12:51 PM MANAGER DIVERSITY Gender Identity Not on file Sexual Orientation [...] HPV/Cotest (30-65) 08/12/2023 08/12/2018 INFLUENZA VACCINE (#1) 2025 03/05/2022, 2019 COVID-19 Vaccine (4 - 2025-2 6 season) 2025 05/22/2021, 09/06/2020, 08/16/2020 CERVICAL CANCER SCREENING 02/25/2025 PAP SMEAR 02/25/2025 02/25/2022 (Prev iously completed), 08/12/2018 Procedures Procedure Name Priority Date/Time Associated Diagnosis Comments MAMMO SCREENING BILAT Routine 10/18/2021 HPV HIGH RISK DNA DETECTION Routine 08/12/2018 1:45 PM MANAGER DIVERSITY CERV/VAG CYTO SCREEN PAP W/HPV Routine 08/12/2018 1:45 PM MANAGER DIVERSITY Cervical cancer screening from Last 3 Months or Most Recently Relevant to Health Maintenance Results * MAMMO SCREENING BILAT (10/18/2021) Anatomical Region Laterality Modality Breast Bilateral Mammography us Caty Klein MD MAMMO ORDERABLES Final Re sult * CERV/VAG CYTO SCREEN PAP W/HPV (08/12/2018 1:45 PM MANAGER DIVERSITY) DIAGNOSIS (PAP): Comment [facility] Comment:NEGATIVE FOR [...] false-positive and false-negative reports do occur. CYTOLOGY DECAL TRANSFERRER METHODOLOGY Comment [facility] Comment: This liquid [...] OF ENDOCERVIX / Unknown 08/12/2018 1:45 PM MANAGER DIVERSITY 08/12/2018 Narrative [facility] - 08/17/2018 3:36 AM MANAGER DIVERSITY Performed at: [address] [id number] Pleating Machine Operator: Gabi Sparks MD, Phone: [phone] Performed at: [address] [id number] Pleating Machine Operator: Gabi Sparks MD, Phone: [phone] Specimen Comment: No. of containers..01 ThinPrep Vial Patti Gonzales NP PATHOLOGY/CYTOLOGY ORDE MYRIAM Edited Result - Final Performing Organization Address [facility] Co de Phone Number [facility] [phone] * HPV HIGH RISK DNA DETECTION (08/12/2018 1:45 PM MANAGER DIVERSITY) HPV HIGH RISK DETECTION Negative Negative [facility] Comment: This test detects fourteen high-risk HPV types (16,18,31,33,35,39,45, 51,52,56,58,59,66,68) without differentiation. 08/12/2018 1:45 PM MANAGER DIVERSITY 08/12/2018 Narrative [facility] - 08/17/2018 3:36 AM MANAGER DIVERSITY Performed at: [address] [id number] Pleating Machine Operator: Gabi Sparks MD, Phone: [phone] Patti Gonzales NP PATHOLOGY/CYTOLOGY ORDE RABLES Final Result Performing Organization Address [facility] de Phone Number [facility] [phone] from Last 3 Months or Most Recently Relevant to Health Maintenance Insurance * Guarantor: [employer] H EDDIE Valdez (C) Account Type Relation to Patient Date of Phone Billing Address Corporate Employer ATTN: KEISHA CORNEJO [address] OPEN ACCESS * Guarantor: [employer]LD [employer] Account Type Relation to Patient Date of Phone Billing Address Corporate Employer ATTN: SALOME ROGERS [address] [address]
--- OUTSIDE RECORDS SUMMARY | 2025-02-20 10:59 | XMS_ITS | Clinical Summary ---
Author Organization [facility] [facility] [address] Address [address] [place] [address] Care Team Providers Care Academic Interventionist Name Role Phone Luly Gonzalez MD Primary Care Provider [phone] Allergies No known active allergies Medications meloxicam [...] on file Legal Sex Female 2:35 AM BILLET RECORDER Gender Identity Not on file Sexual Orientation Not on file Last Filed Vital Signs Vital Sign Reading Time Taken Comments Blood Pressure 154/90 08/20/2023 10:00 PM BILLET RECORDER Pulse 64 08/20/2023 10:40 PM BILLET RECORDER Temperature 36.9 C (98.4 F) 08/20/2023 7:00 PM BILLET RECORDER Respiratory Rate 18 08/20/2023 10:00 PM BILLET RECORDER Oxygen Saturation 99% 08/20/2023 10:40 PM BILLET RECORDER Inhaled Oxygen Concentration - - Weight 74.8 kg (165 lb) 08/20/2023 4:48 PM BILLET RECORDER Height 154.9 cm (5' 1) 08/20/2023 4:48 PM BILLET RECORDER Body Mass Index 31.18 08/20/2023 4:48 PM BILLET RECORDER Plan of Treatment Health Maintenance Due Date [...] patient's age to complete this topic Insurance [facility] [place] [address] [facility] ALLEGIANCE Member Subscriber Plan / Payer (Ef fective 2021-Present) Name:Nathaniel Andres Relation to Subscriber:Unknown Name:IAM ANDRES Date of :1971 (Home) Address: [address] [place] [address] Payer ID:[id number] (NAIC) Type:GOKUL HMO/PPO Address: [facility] [id number] [place] [address] Care Teams Academic Interventionist Relationship Specialty Start Date End Date Luly Gonzalez MD [address] [address] PCP - General Family Medicine 08/20/23
== END 2025-02-20 10:40 | disposition home or self-care (01) ==
LOC: ANHFOHIMG 10:40
PROVIDERS: Visit Provider Obstetrics & Gynecology Gynecology
DX: R92.8 Other abnormal and inconclusive findings on diagnostic imaging of breast (principal)
CPT/HCPCS: 77061; 77065; G0279